=== PATIENT | male | born 1980 | race African-American/Black ===

== ENCOUNTER 2016-07-26 23:34 | Emergency (ER) | payer SELFPAY ==
[2016-07-26] MEDS ORDERED: ACET325T9 PO (23:58)
[2016-07-27] MEDS ORDERED: IPRATRPIUM/ALBUTEROL 0.5/2.5MG 3 ML NEBU. NEB ONE (00:30)
[2016-07-27] MEDS ORDERED: ALBU8.5H8 INH (00:38)
--- NOTE | 2016-07-27 00:38 | PHYS DOC ---
Past History Past Medical History: Bronchitis Past Surgical History: No Surgical History Alcohol Use: Occasionally Additional Alcohol Information: states drinks about 24 oz of beer qod Drug Use: None Adult General Chief Complaint Chief Complaint: DYSPNEA/RESPIRATOY DISTRESS HPI HPI Patient is a 36-year-old gentleman with history significant for COPD, tobacco use, alcohol usage, presents here today complaining of shortness of breath cough congestion has been going on for approximately 3-4 days. Patient reports that he is was to be utilizing albuterol treatments however reports she's not able to afford them although he reports he is able to purchase alcohol and tobacco. Patient denies any fevers shakes chills nausea vomiting diarrhea chest pain dysuria frequency urgency. Patient reports she has a whitish greenish productive cough with occasional blood-tinged sputum. Patient denies any recent weight loss. Patient's physical exam here was unremarkable. Patient's lungs were clear no wheezing rales or rhonchi. Abdomen is soft nontender no rebound or guarding. Heart was regular rate and rhythm. Patient's been sleeping throughout the entirety of his evaluation here in the ER and does not appear to be in any acute respiratory distress. Patient appears comfortable and is resting without any difficulty breathing. Patient's chest x-ray was clear there is no infiltrates or effusions. Assessment and plan: This is a 36-year-old gentleman with history significant for tobacco abuse, COPD, alcohol abuse, presents to the ER today secondary to shortness of breath. Patient reports she's had a cough congestion. Patient's symptoms are consistent with either allergic sinusitis versus chronic bronchitis. In either case I do not feel that antibiotics were warranted at this time. We will get a prescription for the patient to utilize albuterol MDI as needed but currently his lungs are clear and do not see any indication for usage of that right now. Review of Systems Review of Systems Constitutional: Denies fever or chills [] Eyes: Denies change in visual acuity, redness, or eye pain [] All other review systems are negative except as documented in the history of present illness portion. Current Medications Current Medications Current Medications Medications (Trade) Dose Ordered Sig/Mally Start Time Stop Time Status Last Admin Dose Admin Albuterol/ Ipratropium (Duoneb) 3 ml 1X ONCE 07/27/16 00:30 07/27/16 00:31 Allergies Allergies Allergies Coded Allergies Type Severity Reaction Last Updated Verified No Known Drug Allergies 07/26/16 No Physical Exam Physical Exam Constitutional: Well developed, well nourished, no acute distress, non-toxic appearance. [] HENT: Normocephalic, atraumatic, bilateral external ears normal, oropharynx moist, no oral exudates, nose normal. [] Eyes: PERRLA, EOMI, conjunctiva normal, no discharge. [] Neck: Normal range of motion, no tenderness, supple, no stridor. [] Cardiovascular:Heart rate regular rhythm, no murmur [] Lungs & Thorax: Bilateral breath sounds clear to auscultation [] Abdomen: Bowel sounds normal, soft, no tenderness, no masses, no pulsatile masses. [] Skin: Warm, dry, no erythema, no rash. [] Back: No tenderness, no CVA tenderness. [] Extremities: No tenderness, no cyanosis, no clubbing, ROM intact, no edema. [] Neurologic: Alert and oriented X 3, normal motor function, normal sensory function, no focal deficits noted. [] Psychologic: Affect normal, judgement normal, mood normal. [] Current Patient Data Vital Signs Vital Signs Date Time Temp Pulse Resp B/P (MAP) Pulse Ox O2 Delivery O2 Flow Rate FiO2 07/26/16 23:35 97.5 85 22 94 Room Air EKG EKG [] Radiology/Procedures Radiology/Procedures [] Course & Med Decision Making Course & Med Decision Making Pertinent Labs and Imaging studies reviewed. (See chart for details) [] Dragon Disclaimer Dragon Disclaimer This chart was dictated in whole or in part using Voice Recognition software in a busy, high-work load, and often noisy Emergency Department environment. It may contain unintended and wholly unrecognized errors or omissions. Departure Departure: Impression: Primary Impression: Dyspnea Additional Impression: Bronchitis Disposition: 01 HOME, SELF-CARE Condition: IMPROVED Referrals: PCP,ARELIS (PCP) Patient Instructions: Acute Bronchitis Scripts Albuterol Sulfate (PROAIR HFA INHALER) 8.5 Gm Hfa.aer.ad 2 PUFF INH PRN Q6HRS Y for SHORTNESS OF BREATH, #1 INHALER 0 Refills Prov: YOSI PHELPS MD 07/27/16 Problem Qualifiers YOSI PHELPS MD July 27, 2016 00:38
[2016-07-27 00:40] VITALS: BP 109/55
[2016-07-27] MEDS ORDERED: ALBUTEROL SULFATE 8GM INHALER. ONE (00:43)
[2016-07-27] MEDS ORDERED: ALBUTEROL SULFATE 8GM INHALER. INH ONE (00:45)
--- NOTE | 2016-07-27 08:12 | RAD ---
CHEST PA LATERAL Technique: PA and lateral views of the chest were obtained. Clinical History: Cough, short of air tonight Comparison: None. Findings: The heart and pulmonary vasculature appear within normal limits. The lungs are clear. The pleural margins are clear. Impression: No acute chest process is seen.
== END 2016-07-27 00:55 | disposition home or self-care (01) ==
LOC: ER 23:34
DX: J20.9 Acute bronchitis, unspecified (principal); J44.9 Chronic obstructive pulmonary disease, unspecified; F10.10 Alcohol abuse, uncomplicated
CPT/HCPCS: 71020; 99284-25

== ENCOUNTER 2017-08-13 06:15 | Emergency (ER) | payer SELFPAY ==
[~2017-08-13] VITALS: Ht 172.7 cm; Wt 68.0 kg
[~2017-08-13 06:15] MED LIST: ACET325T9 PO; ALBU8.5H8 INH
[2017-08-13] MEDS ORDERED: PRED50TA PO (06:43)
--- NOTE | 2017-08-13 06:43 | PHYS DOC ---
Past History Past Medical History: Bronchitis Past Surgical History: No Surgical History Alcohol Use: Occasionally Drug Use: None Adult General Chief Complaint Chief Complaint: cough HPI HPI This is a pleasant 37-year-old male presenting in the emergency department today with wheezing and a mild cough for the past 24 hours. He reports that he has a history of bronchitis and thinks that it is back. Location lungs. Duration intermittent. No alleviating or exacerbating factors. Past medical history: Bronchitis Past surgical history: None Allergies none Social history: Positive for smoking, drinking but denies IV drug use. Review of systems is negative for chest pain, nausea vomiting fevers chills headache neck pain. All other review of systems is negative unless otherwise noted in history of present illness. ED course: 37-year-old male presenting to the emergency department today with intermittent mild nonproductive cough over the past 24 hours. On arrival vital signs show the patient be afebrile with a normal heart rate. Saturating well on room air. He is comfortable and well-appearing breathing comfortably in the examination room. Lungs are clear bilaterally with mild prolonged expiratory phase. Abdomen is soft and nontender. Regular rate and rhythm. Otherwise unremarkable examination. Patient was given a nebulizer and oral prednisone to follow-up with his doctor in 2-3 days.The patient has been examined and was not found to have an emergency medical condition. The patient was then discharged home in stable condition to follow up with their primary care physician over the next 2-3 days. They were to return if their symptoms worsened or if they were concerned for any reason. [id number] discharge instructions and return precautions were given. Patient's questions were answered to their satisfaction. Patient is comfortable with plan. Review of Systems Review of Systems SEE ABOVE. Allergies Allergies Allergies Coded Allergies Type Severity Reaction Last Updated Verified No Known Drug Allergies 07/26/16 No Physical Exam Physical Exam SEE ABOVE Constitutional: Well developed, well nourished, no acute distress, non-toxic appearance. [] HENT: Normocephalic, atraumatic, bilateral external ears normal, oropharynx moist, no oral exudates, nose normal. [] Eyes: PERRLA, EOMI, conjunctiva normal, no discharge. [] Neck: Normal range of motion, no tenderness, supple, no stridor. [] Cardiovascular:Heart rate regular rhythm, no murmur [] Lungs & Thorax: Bilateral breath sounds clear to auscultation. see above Abdomen: Bowel sounds normal, soft, no tenderness, no masses, no pulsatile masses. [] Skin: Warm, dry, no erythema, no rash. [] Back: No tenderness, no CVA tenderness. [] Extremities: No tenderness, no cyanosis, no clubbing, ROM intact, no edema. [] Neurologic: Alert and oriented X 3, normal motor function, normal sensory function, no focal deficits noted. [] Psychologic: Affect normal, judgement normal, mood normal. [] EKG EKG [] Radiology/Procedures Radiology/Procedures [] Course & Med Decision Making Course & Med Decision Making Pertinent Labs and Imaging studies reviewed. (See chart for details) [] Dragon Disclaimer Dragon Disclaimer This electronic medical record was generated, in whole or in part, using a voice recognition dictation system. Departure Departure: Impression: Primary Impression: Bronchitis Disposition: HOME, SELF-CARE Condition: STABLE Referrals: PCP,NO (PCP) Patient Instructions: Acute Bronchitis, [id number] Additional Instructions: Thank you for allowing us to participate in your care today. Followup with your primary care physician in 3 days if your symptoms do not improve. Call your Primary Doctor tomorrow and inform them of your visit today. If you do not have a primary care provider you can ask for a list of our primary care providers. Return to the emergency department you have any new or concerning findings. This should be evaluated by the primary care physician and any necessary consulting services for continued management within a few days after discharge. Return to emergency room if you have any new or concerning symptoms including but not limited to fever, chills, nausea, vomiting, intractable pain, any new rashes, chest pain, shortness of air, uncontrolled bleeding, difficulty breathing, and/or vision loss. If at any time, you are having difficulty getting into your primary care doctor or a specialist, return to the emergency department. Scripts Prednisone (PREDNISONE) 50 Mg Tablet 1 TAB PO DAILY, #4 TAB You received this medication in the emergency room today. You will starting your next dose tomorrow. Prov: HEENA CASTELAN MD 08/13/17 HEENA CASTELAN MD August 13, 2017 06:43
[2017-08-13] MEDS ORDERED: IPRATRPIUM/ALBUTEROL 0.5/2.5MG 3 ML NEBU. NEB ONE (07:00)
[2017-08-13] MEDS ORDERED: predniSONE 20 MG TABLET PO ONE (07:00)
[2017-08-13 07:14] VITALS: BP 133/83
== END 2017-08-13 07:05 | disposition home or self-care (01) ==
LOC: ER 06:15
DX: J40 Bronchitis, not specified as acute or chronic (principal); F17.200 Nicotine dependence, unspecified, uncomplicated
CPT/HCPCS: 94640; 99283; J7512; J7620

== ENCOUNTER 2017-08-28 03:22 | Emergency (ER) | payer SELFPAY ==
[~2017-08-28] VITALS: Ht 172.7 cm; Wt 71.9 kg
[~2017-08-28 03:22] MED LIST changes: +PRED50TA PO
[2017-08-28 03:55] VITALS: BP 118/81
[2017-08-28] MEDS ORDERED: IPRATRPIUM/ALBUTEROL 0.5/2.5MG 3 ML NEBU. ONE (04:12)
[2017-08-28] MEDS ORDERED: PRED20TA PO (04:19)
[2017-08-28] MEDS ORDERED: ALBU18HF IH (04:19)
--- NOTE | 2017-08-28 04:25 | PHYS DOC ---
Past History Past Medical History: Bronchitis Past Surgical History: No Surgical History Alcohol Use: Occasionally Drug Use: None Adult General Chief Complaint Chief Complaint: SHORTNESS OF BREATH HPI HPI Patient is a 37 year old male who presents with complaint of shortness of breath and dizziness. Patient states that his symptoms started last night at approximately 10:00 PM. Patient states that he has history of asthma states that he is having similar symptoms. Patient states that he thinks the dust in the air may have caused the symptoms to worsen. Patient was last seen in the emergency department in May where he was treated for bronchitis at that time. Patient states the symptoms are similar to his previous episode. Patient does not have albuterol and has not taken any medications for treatment. Patient denies productive cough or fever. Patient states that he has had lightheadedness as well. The patient states that he has not had access to food and water in normal amounts. Patient is homeless. Denies any injuries. Review of Systems Review of Systems Constitutional: Lightheadedness, denies fever or chills [] Eyes: Denies change in visual acuity, redness, or eye pain [] HENT: Denies nasal congestion or sore throat [] Respiratory: Cough, shortness of breath[] Cardiovascular: Denies chest pain or edema[] GI: Denies abdominal pain, nausea, vomiting, bloody stools or diarrhea [] : Denies dysuria or hematuria [] Musculoskeletal: Denies back pain or joint pain [] Integument: Denies rash or skin lesions [] Neurologic: Denies headache, focal weakness or sensory changes [] All other systems were reviewed and found to be within normal limits, except as documented in this note. Allergies Allergies Allergies Coded Allergies Type Severity Reaction Last Updated Verified No Known Drug Allergies 07/26/16 No Physical Exam Physical Exam Constitutional: Alert, afebrile, disheveled appearance, no acute distress. [] HENT: Normocephalic, atraumatic, bilateral external ears normal, oropharynx moist, no oral exudates, nose normal. [] Eyes: PERRLA, EOMI, conjunctiva normal, no discharge. [] Neck: Normal range of motion, no tenderness, supple, no stridor. [] Cardiovascular:Heart rate regular rhythm, no murmur [] Lungs & Thorax: Mild to moderate restriction of air movement bilaterally, expiratory wheezes present, no rales.[] Abdomen: Bowel sounds normal, soft, no tenderness, no masses, no pulsatile masses. [] Skin: Warm, dry, no erythema, no rash. [] Back: No tenderness, no CVA tenderness. [] Extremities: No tenderness, no cyanosis, no clubbing, ROM intact, no edema. [] Neurologic: Alert and oriented X 3, normal motor function, normal sensory function, no focal deficits noted. [] Current Patient Data Vital Signs Vital Signs Date Time Temp Pulse Resp B/P (MAP) Pulse Ox O2 Delivery O2 Flow Rate FiO2 08/28/17 04:17 98 Room Air 08/28/17 03:55 97.6 52 18 Lab Results Not performed EKG EKG Not performed[] Radiology/Procedures Radiology/Procedures Not performed[] Course & Med Decision Making Course & Med Decision Making Pertinent Labs and Imaging studies reviewed. (See chart for details) Patient was treated with DuoNeb breathing treatment. Patient offered a snack and oral fluids. The patient declined a snack but did accept oral fluids which she was able to tolerate without difficulty. Patient's lightheadedness is likely due to dehydration. Patient states that he is feeling better after drinking water. The patient is steady on his feet and appears in no acute distress at this time. Patient prescribed albuterol and prednisone for control of asthma symptoms. Patient states that he will be going to the homeless long-term this morning to get breakfast and states that he does have a safe place to go upon discharge. Advised return to emergency department for any worsening symptoms. Patient was understanding and agreement with treatment plan. Dragon Disclaimer Dragon Disclaimer This electronic medical record was generated, in whole or in part, using a voice recognition dictation system. Departure Departure: Impression: Primary Impression: Asthma exacerbation Disposition: 01 HOME, SELF-CARE Condition: IMPROVED Referrals: PCP,NO (PCP) Patient Instructions: Asthma, Adult Additional Instructions: Follow-up with your primary doctor in 1 week for reevaluation. Be sure to drink plenty of fluids to prevent dehydration. Return to the emergency department for any worsening symptoms. Scripts Prednisone (PREDNISONE) 20 Mg Tablet 1 TAB PO BID, #10 TAB Prov: ED TORREZ MD 08/28/17 Albuterol Sulfate (VENTOLIN HFA INHALER) 18 Gm Hfa.aer.ad 2 PUFF IH Q4HRS PRN for WHEEZING, #1 INHALER 0 Refills Prov: ED TORREZ MD 08/28/17 Problem Qualifiers Primary Impression: Asthma exacerbation Asthma severity: mild Asthma persistence: persistent Qualified Codes: J45.31 - Mild persistent asthma with (acute) exacerbation ED TORREZ MD Aug 28, 2017 04:25
[2017-08-28] MEDS ORDERED: predniSONE 20 MG TABLET PO ONE (04:30)
== END 2017-08-28 05:00 | disposition home or self-care (01) ==
LOC: ER 03:22
DX: J45.901 Unspecified asthma with (acute) exacerbation (principal)
CPT/HCPCS: 94640; 99283; J7512

== ENCOUNTER 2017-09-12 03:44 | Emergency (ER) | payer SELFPAY ==
[~2017-09-12] VITALS: Ht 177.8 cm; Wt 71.8 kg
[~2017-09-12 03:44] MED LIST changes: +ALBU18HF IH; +PRED20TA PO
[2017-09-12 03:47] VITALS: BP 120/69
[2017-09-12] MEDS ORDERED: IBUPROFEN 600 MG TABLET. PO ONE ×2 (04:10→04:15)
--- NOTE | 2017-09-12 04:17 | ED.ADGEN ---
Past History Past Medical History: Bronchitis Past Surgical History: No Surgical History Alcohol Use: Occasionally Drug Use: None Adult General Chief Complaint Chief Complaint ".. I ve started working construction.. and I got a blister between my toes on the right foot..." HPI HPI Patient is a 37 year old male who presents with blister between 1stn and 2nd toe Rt. foot. Pt. states his sock balled up and blister formed. Pt. had tetanus two months ago. No hx of other injury or hx of ill contacts. No hx of travel. No hx of immunosuppression. Pt. rates his pain 10/24, and sometime . Review of Systems Review of Systems Constitutional: Denies fever or chills [] Eyes: Denies change in visual acuity, redness, or eye pain [] HENT: Denies nasal congestion or sore throat [] Respiratory: Denies cough or shortness of breath [] Cardiovascular: No additional information not addressed in HPI [] GI: Denies abdominal pain, nausea, vomiting, bloody stools or diarrhea [] : Denies dysuria or hematuria [] Musculoskeletal: Denies back pain or joint pain [] Integument: Denies rash or skin lesions []Complaints of blister. Neurologic: Denies headache, focal weakness or sensory changes [] Endocrine: Denies polyuria or polydipsia [] All other systems were reviewed and found to be within normal limits, except as documented in this note. Family History Family History Non contributory Current Medications Current Medications Current Medications Medications (Trade) Dose Ordered Sig/Mally Start Time Stop Time Status Last Admin Dose Admin Ibuprofen (Motrin) 600 mg 1X ONCE 09/12/17 04:15 09/12/17 04:16 UNV 09/12/17 04:13 600 MG See Nursing for home meds. Allergies Allergies Allergies Coded Allergies Type Severity Reaction Last Updated Verified No Known Drug Allergies 07/26/16 No Physical Exam Physical Exam Constitutional: appears in no acute distress in spite of his pain rating, non- toxic appearance. [] HENT: Normocephalic, atraumatic, bilateral external ears normal, oropharynx moist, no oral exudates, nose normal. [] Eyes: PERRLA, EOMI, conjunctiva normal, no discharge. [] Neck: Normal range of motion, no tenderness, supple, no stridor. [] Cardiovascular:Bradycardia Heart rate regular rhythm, no murmur [] Lungs & Thorax: Bilateral breath sounds clear to auscultation [] Abdomen: Bowel sounds normal, soft, no tenderness, no masses, no pulsatile masses. [] Skin: Warm, dry, no erythema, no rash. [] Bister between 1st and 2 nd toe. Back: No tenderness, no CVA tenderness. [] Extremities: No tenderness, no cyanosis, no clubbing, ROM intact, no edema. [] Neurologic: Alert and oriented X 3, normal motor function, normal sensory function, no focal deficits noted. [] Psychologic: Affect anxious, judgement normal, mood normal. [] EKG EKG [] Radiology/Procedures Radiology/Procedures [] Course & Med Decision Making Course & Med Decision Making Pertinent Labs and Imaging studies reviewed. (See chart for details). White socks only . Apply polysporin to blister 4 x days. Soak feet in salt water or episome salt daily. Follow up with primary. Tylenol and Ibuprofen for pain . [] Final Impression Final Impression 1. Blister between 1 and 2 nd toe Rt. foot - 1 x 0.5 cm.[] Dragon Disclaimer Dragon Disclaimer This electronic medical record was generated, in whole or in part, using a voice recognition dictation system. ANN-MARIE ROSE MD Sep 12, 2017 04:17
== END 2017-09-12 04:16 | disposition home or self-care (01) ==
LOC: ER 03:44
DX: S90.821A Blister (nonthermal), right foot, initial encounter (principal); X58.XXXA Exposure to other specified factors, initial encounter; Y93.89 Activity, other specified; Y99.8 Other external cause status; Y92.89 Other specified places as the place of occurrence of the external cause
CPT/HCPCS: 16020; 99283; 99284

== ENCOUNTER 2017-09-15 03:14 | Emergency (ER) | payer SELFPAY ==
[~2017-09-15] VITALS: Ht 177.8 cm; Wt 71.8 kg
--- NOTE | 2017-09-15 03:17 | ED.ADGEN ---
Past History Past Medical History: Bronchitis, Other Past Surgical History: No Surgical History Alcohol Use: None Drug Use: None Adult General Chief Complaint Chief Complaint ".. I did a couple bad lines of coke.. I snorted it... but I think it was bad... I ve had a headache since yesterday..." HPI HPI Patient is a 37 year old male who presents with above hx and complaints of headache and dizziness. Pt. seen on 09/12 for blister on toe webbing and previous to that for exacerbation of his asthma. Pt. was drinking alcohol when he did two lines of cocaine- or what was reported to be cocaine. Pt. denies other drugs. Pt. lives in [facility], but visiting in [place]. 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 Review of Systems Review of Systems Constitutional: Denies fever or chills [] Eyes: Denies change in visual acuity, redness, or eye pain [] HENT: Denies nasal congestion or sore throat [] Respiratory: Denies cough or shortness of breath [] Cardiovascular: No additional information not addressed in HPI [] GI: Denies abdominal pain, nausea, vomiting, bloody stools or diarrhea [] : Denies dysuria or hematuria [] Musculoskeletal: Denies back pain or joint pain [] Integument: Denies rash or skin lesions [] Neurologic: Denies headache, focal weakness or sensory changes [] Endocrine: Denies polyuria or polydipsia [] All other systems were reviewed and found to be within normal limits, except as documented in this note. Family History Family History Non-contributory Current Medications Current Medications Current Medications Medications (Trade) Dose Ordered Sig/Mally Start Time Stop Time Status Last Admin Dose Admin Aspirin (Children'S Aspirin) 324 mg 1X ONCE 09/15/17 03:30 09/15/17 03:31 DC 09/15/17 03:30 324 MG Folic Acid (FOLIC ACID SYRINGE for ER) 5 mg STK-MED ONCE 09/15/17 03:43 09/15/17 03:44 DC Lactated Ringer's 1,000 ml @ 1,000 mls/hr Q1H 09/15/17 03:30 09/15/17 04:29 DC 09/15/17 03:30 1,000 MLS/HR Multivitamins/ Minerals 10 ml/ Folic Acid 1 mg/ Thiamine HCl 100 mg/Lactated Ringer's 1,011.1 ml @ 1,000 mls/ hr 1X ONCE 09/15/17 03:30 09/15/17 04:30 DC 09/15/17 03:30 1,000 MLS/HR Thiamine HCl 200 mg STK-MED ONCE 09/15/17 03:44 09/15/17 03:45 DC Allergies Allergies Allergies Coded Allergies Type Severity Reaction Last Updated Verified No Known Drug Allergies 07/26/16 No Physical Exam Physical Exam Constitutional: Moderately acute distress, non-toxic appearance. [] HENT: Normocephalic, atraumatic, bilateral external ears normal, oropharynx moist, no oral exudates, nose rhinorrhea[] Eyes: PERRLA, EOMI, conjunctiva normal, no discharge. [] Neck: Normal range of motion, no tenderness, supple, no stridor. [] Cardiovascular:Bradycardia Heart rate regular rhythm, no murmur [] Lungs & Thorax: Bilateral breath sounds equal with few scattered wheezes on auscultation [] Abdomen: Bowel sounds normal, soft, no tenderness, no masses, no pulsatile masses. [] Skin: Warm, dry, no erythema, no rash. [] Back: No tenderness, no CVA tenderness. [] Extremities: No tenderness, no cyanosis, no clubbing, ROM intact, no edema. [] Neurologic: Alert and oriented X 3, normal motor function, normal sensory function, no focal deficits noted. []DTR+ 2 patella and brachial. Mail Messenger Contractor equal. Slight wide gait. Psychologic: Affect anxious, judgement normal, mood normal. [] Current Patient Data Vital Signs Vital Signs Date Time Temp Pulse Resp B/P (MAP) Pulse Ox O2 Delivery O2 Flow Rate FiO2 09/15/17 04:21 52 16 100 09/15/17 03:25 97.9 Room Air Lab Results Laboratory Tests Test 09/15/17 03:34 09/15/17 03:35 White Blood Count 4.3 x10^3/uL (4.0-11.0) Red Blood Count 4.58 x10^6/uL (4.30-5.70) Hemoglobin 13.9 g/dL (13.0-17.5) Hematocrit 40.9 % (39.0-53.0) Mean Corpuscular Volume 89 fL (79-100) Mean Corpuscular Hemoglobin 30 pg (25-35) Mean Corpuscular Hemoglobin Concent 34 g/dL (31-37) Red Cell Distribution Width 15.3 % (11.5-14.5) H Platelet Count 237 x10^3/uL (140-400) Neutrophils (%) (Auto) 47 % (31-73) Lymphocytes (%) (Auto) 36 % (24-48) Monocytes (%) (Auto) 10 % (0-9) H Eosinophils (%) (Auto) 6 % (0-3) H Basophils (%) (Auto) 1 % (0-3) Neutrophils # (Auto) 2.0 x10^3uL (1.8-7.7) Lymphocytes # (Auto) 1.5 x10^3/uL (1.0-4.8) Monocytes # (Auto) 0.4 x10^3/uL (0.0-1.1) Eosinophils # (Auto) 0.3 x10^3/uL (0.0-0.7) Basophils # (Auto) 0.1 x10^3/uL (0.0-0.2) Prothrombin Time 10.7 SEC (9.4-11.4) Prothrombin Time INR 1.0 (0.9-1.1) PTT 29 SEC (23-33) D-Dimer (Sophia) 0.23 mg/L (0.00-0.50) Sodium Level 138 mmol/L (136-145) Potassium Level 3.7 mmol/L (3.5-5.1) Chloride Level 104 mmol/L (98-107) Carbon Dioxide Level 32 mmol/L (21-32) Anion Gap 2 (6-14) L Blood Urea Nitrogen 10 mg/dL (8-26) Creatinine 0.9 mg/dL (0.7-1.3) Estimated GFR (Cockcroft-Gault) 114.9 Glucose Level 84 mg/dL (70-99) Calcium Level 8.9 mg/dL (8.5-10.1) Magnesium Level 2.0 mg/dL (1.8-2.4) Total Bilirubin 0.5 mg/dL (0.2-1.0) Direct Bilirubin 0.1 mg/dL (0.0-0.2) Aspartate Amino Transferase (AST) 21 U/L (15-37) Alanine Aminotransferase (ALT) 19 U/L (16-63) Alkaline Phosphatase 72 U/L (46-116) Creatine Kinase 406 U/L (39-308) H Creatine Kinase MB (Mass) 1.3 ng/mL (0.0-3.6) Creatine Kinase MB Relative Index 0.3 % (0-4) Troponin I Quantitative < 0.017 ng/mL (0-0.055) [id number]-Xeu-I-Type Natriuretic Peptide 18 pg/mL (0-124) Total Protein 6.8 g/dL (6.4-8.2) Albumin 3.7 g/dL (3.4-5.0) Lipase 102 U/L (73-393) Ethyl Alcohol Level < 10 mg/dL (0-10) Urine Collection Type Unknown Urine Color Yellow Urine Clarity Clear Urine pH 6.0 Urine Specific [place] 1.010 Urine Protein Neg (NEG-TRACE) Urine Glucose (UA) Neg mg/dL (NEG) Urine Ketones (Stick) Neg mg/dL (NEG) Urine Blood Neg (NEG) Urine Nitrite Neg (NEG) Urine Bilirubin Neg (NEG) Urine Urobilinogen Dipstick 0.2 mg/dL (0.2 mg/dL) Urine Leukocyte Esterase Neg (NEG) Urine RBC 0 /HPF (0-2) Urine WBC Occ /HPF (0-4) Urine Squamous Epithelial Cells Occ /LPF Urine Bacteria 0 /HPF (0-FEW) Urine Opiates Screen Neg (NEG) Urine Methadone Screen Neg (NEG) Urine Barbiturates Neg (NEG) Urine Phencyclidine Screen Neg (NEG) Urine Amphetamine/Methamphetamine Neg (NEG) Urine Benzodiazepines Screen Neg (NEG) Urine Cocaine Screen Pos (NEG) Urine Cannabinoids Screen Pos (NEG) Urine Ethyl Alcohol Neg (NEG) EKG EKG My interpretation of EKG shows a sinus bradycardia at 52 bpm. Some nonspecific anterior lateral changes. But no findings acute STEMI of contralateral changes.[ ] Radiology/Procedures Radiology/Procedures My interpretation of chest x-ray shows no acute cardiopulmonary findings. My interpretation CT head shows no shift, mass, edema, bleed, or fracture. Review formal report when available.[] Course & Med Decision Making Course & Med Decision Making Pertinent Labs and Imaging studies reviewed. (See chart for details). Pt. to stop further illicit drug use. Pt. encourage to follow up with primary. Push fruit juices. [] Final Impression Final Impression 1. Hx of Polysubstance Abuse[] 2. Bradycardia Dragon Disclaimer Dragon Disclaimer This electronic medical record was generated, in whole or in part, using a voice recognition dictation system. ANN-MARIE ROSE MD Sep 15, 2017 03:17
[2017-09-15 03:25] VITALS: BP 150/86
[2017-09-15] MEDS ORDERED: IV RINGERS SOLUTION,LACTATED 1,000 ML IV SCH (03:30)
[2017-09-15] MEDS ORDERED: ASPIRIN 81 MG TAB.CHEW PO ONE (03:30)
[2017-09-15] MEDS ORDERED: MVI, ADULT NO.4 WITH VIT K 10 ML, FOLIC ACID SYRINGE for ER 1 MG, THIAMINE 100 MG in IV... IV ONE ×4 (03:30)
[2017-09-15] MEDS ORDERED: FOLIC ACID 5 MG/ML SYRINGE for ER IV ONE (03:43)
[2017-09-15] MEDS ORDERED: THIAMINE 200 MG/2 ML VIAL. IV ONE (03:44)
--- NOTE | 2017-09-15 03:46 | EKG ---
[address] [address] Test Date: 2017-09-15 Test Time: 03:41:24 Pat Name: NICK ELLSWORTH Department: Room: Gender: M Field Reporter: KERLINE : 1980 Requested By: ANN-MARIE ROSE Order Number: [id number] Reading MD: Doyle Childress MD Measurements Intervals [place] Rate: 52 P: 0 CT: 170 QRS: 68 QRSD: 86 T: 36 QT: 386 QTc: 361 Interpretive Statements SINUS RHYTHM NON-SPECIFIC ST/T CHANGES Electronically Signed On 09-15-2017 13:33:59 CDT by Doyle Childress MD
[2017-09-15 03:50] LABS: BASO # 0.1 x10^3/uL (0.0-0.2); BASO % 1 % (0-3); EOS # 0.3 x10^3/uL (0.0-0.7); EOS % 6 % (0-3); HEMATOCRIT 40.9 % (39.0-53.0); HEMOGLOBIN 13.9 g/dL (13.0-17.5); LYMPH # 1.5 x10^3/uL (1.0-4.8); LYMPH % 36 % (24-48); MEAN CORPUSCULAR HEMOGLOBIN 30 pg (25-35); MEAN CORPUSCULAR HGB CONC 34 g/dL (31-37); MEAN CORPUSCULAR VOLUME 89 fL (79-100); MONO # 0.4 x10^3/uL (0.0-1.1); MONO % 10 % (0-9); NEUT % 47 % (31-73); PLATELET COUNT 237 x10^3/uL (140-400); RED BLOOD COUNT 4.58 x10^6/uL (4.30-5.70); RED CELL DISTRIBUTION WIDTH 15.3 % (11.5-14.5); WHITE BLOOD COUNT 4.3 x10^3/uL (4.0-11.0)
--- NOTE | 2017-09-15 03:59 | RAD ---
INDICATION: [id number] Headache, dizziness COMPARISON: None. TECHNIQUE: Axial CT images obtained through the head without intravenous contrast. One or more of the following individualized dose reduction techniques were utilized for this examination: 1. Automated exposure control; 2. Adjustment of the mA and/or kV according to patient size; 3. Use of iterative reconstruction technique. FINDINGS: No intracranial hemorrhage. No midline shift. Basal cisterns patent. Ventricles and sulci are unremarkable. Angulation of right zygomatic arch Orbits and paranasal sinuses unremarkable. IMPRESSION: 1. No acute intracranial hemorrhage. 2. Angulation of right zygomatic arch. Could be congenital or secondary to fracture of unknown age. Electronically signed by: Lc Cobb MD (09/15/2017 3:56 AM) [facility]
[2017-09-15 04:05] LABS: BACTERIA,URINE 0 /HPF (0-FEW); BILIRUBIN,URINE NEG (NEG); CLARITY,URINE CLEAR; COLOR,URINE YELLOW; GLUCOSE,URINE NEG (NEG); NITRITE,URINE NEG (NEG); RBC,URINE 0 /HPF (0-2); SQUAMOUS EPITHELIAL CELL,UR OCC /LPF; UROBILINOGEN,URINE 0.2 mg/dL (0.2 mg/dL); WBC,URINE OCC /HPF (0-4)
[2017-09-15 04:16] LABS: BARBITURATES NEG (NEG); BENZODIAZEPINES NEG (NEG); CANNABINOIDS POS (NEG); COCAINE POS (NEG); METHADONE NEG (NEG); OPIATES NEG (NEG); PHENCYCLIDINE NEG (NEG)
[2017-09-15 04:17] LABS: AMPHETAMINE/METHAMPHETAMINE NEG (NEG)
[2017-09-15 04:19] LABS: ALBUMIN 3.7 g/dL (3.4-5.0); CALCIUM 8.9 mg/dL (8.5-10.1); CREATININE 0.9 mg/dL (0.7-1.3); DIRECT BILIRUBIN 0.1 mg/dL (0.0-0.2); GFR 114.9; POTASSIUM 3.7 mmol/L (3.5-5.1); TOTAL BILIRUBIN 0.5 mg/dL (0.2-1.0); TOTAL PROTEIN 6.8 g/dL (6.4-8.2)
--- NOTE | 2017-09-15 07:46 | RAD ---
Chest radiograph 09/15/2017 3:18 AM INDICATION: Headache, dizziness COMPARISON: Chest radiograph July 27, 2016 TECHNIQUE: Frontal view of the chest is provided. FINDINGS: The cardiomediastinal silhouette is within normal limits. There are no pleural effusions. There is no pulmonary vascular congestion. There is no pneumothorax. The lungs are clear. No significant osseous abnormality is identified. IMPRESSION: No acute cardiopulmonary process. Electronically signed by: Massiel Umanzor MD (09/15/2017 7:43 AM) [facility]
== END 2017-09-15 04:57 | disposition home or self-care (01) ==
LOC: ER 03:14
DX: R00.1 Bradycardia, unspecified (principal); F19.10 Other psychoactive substance abuse, uncomplicated
CPT/HCPCS: 36415; 70450; 71045; 80048; 80076; 80307; 81001; 82553; 83690; 83735; 83880; 84443; 84484; 85025; 85379; 85610; 85730; 93005; 96365; 99285; G0480; J7120; G0479

== ENCOUNTER 2017-09-22 23:18 | Emergency (ER) | payer SELFPAY ==
[~2017-09-22] VITALS: Ht 177.8 cm; Wt 71.8 kg
--- NOTE | 2017-09-22 23:23 | ED.ADGEN ---
Past History Past Medical History: Bronchitis, Other Past Surgical History: No Surgical History Smoking: Cigarettes Alcohol Use: Heavy Drug Use: Cocaine, Marijuana Adult General Chief Complaint Chief Complaint ".. I ve been dizzy since 11:00.. I was over at my friends... and was drinking a couple beers.. when I got up ... I was dizzy..." HPI HPI Patient is a 37 year old male who presents with above hx and complaints dizzy after working outside all day and then drinking beer tonight. Pt. denies any trauma, chest pain, ill contracts or travel. Pt. does smoke. Pt. had min. fluid in today. Pt. seen previously for bronchitis and prior eval. for similar complaints. Pt. is ambulatory with out problems. Review of Systems Review of Systems Constitutional: Denies fever or chills [] Eyes: Denies change in visual acuity, redness, or eye pain [] HENT: Denies nasal congestion or sore throat [] Respiratory: Denies cough or shortness of breath [] Cardiovascular: No additional information not addressed in HPI []Complaints of dizzy. GI: Denies abdominal pain, nausea, vomiting, bloody stools or diarrhea [] : Denies dysuria or hematuria [] Musculoskeletal: Denies back pain or joint pain [] Integument: Denies rash or skin lesions [] Neurologic: Denies headache, focal weakness or sensory changes [] Endocrine: Denies polyuria or polydipsia [] All other systems were reviewed and found to be within normal limits, except as documented in this note. Family History Family History Non-contributory Current Medications Current Medications See Nursing for home meds. Allergies Allergies Allergies Coded Allergies Type Severity Reaction Last Updated Verified No Known Drug Allergies 07/26/16 No Physical Exam Physical Exam Constitutional: , no acute distress, non-toxic appearance. [] HENT: Normocephalic, atraumatic, bilateral external ears normal, oropharynx moist, no oral exudates, nose normal. [] Eyes: PERRLA, EOMI, conjunctiva normal, no discharge. [] Neck: Normal range of motion, no tenderness, supple, no stridor. [] Cardiovascular:Bradycardia Heart rate regular rhythm, no murmur [] Lungs & Thorax: Bilateral breath sounds scattered wheezes and equal at apex on auscultation [] Abdomen: Bowel sounds normal, soft, no tenderness, no masses, no pulsatile masses. [] Skin: Warm, dry, no erythema, no rash. [] Back: No tenderness, no CVA tenderness. [] Extremities: No tenderness, no cyanosis, no clubbing, ROM intact, no edema. [] Neurologic: Alert and oriented X 3, normal motor function, normal sensory function, no focal deficits noted. []DTR + 2 patella and brachial. Information Resources Manager equal. Rt hand dominate. Psychologic: Affect distracted, judgement normal, mood normal. [] Current Patient Data Vital Signs Vital Signs Date Time Temp Pulse Resp B/P (MAP) Pulse Ox O2 Delivery O2 Flow Rate FiO2 09/23/17 01:08 68 18 118/64 (82) 98 Room Air 09/22/17 23:31 98.2 Lab Results Laboratory Tests Test 09/23/17 00:15 Urine Collection Type Unknown Urine Color Yellow Urine Clarity Clear Urine pH 6.0 Urine Specific [place] 1.025 Urine Protein Neg (NEG-TRACE) Urine Glucose (UA) Neg mg/dL (NEG) Urine Ketones (Stick) Trace mg/dL (NEG) Urine Blood Neg (NEG) Urine Nitrite Neg (NEG) Urine Bilirubin Neg (NEG) Urine Urobilinogen Dipstick 0.2 mg/dL (0.2 mg/dL) Urine Leukocyte Esterase Neg (NEG) Urine RBC 0 /HPF (0-2) Urine WBC Occ /HPF (0-4) Urine Squamous Epithelial Cells Occ /LPF Urine Bacteria 0 /HPF (0-FEW) Urine Opiates Screen Neg (NEG) Urine Methadone Screen Neg (NEG) Urine Barbiturates Neg (NEG) Urine Phencyclidine Screen Neg (NEG) Urine Amphetamine/Methamphetamine Neg (NEG) Urine Benzodiazepines Screen Neg (NEG) Urine Cocaine Screen Neg (NEG) Urine Cannabinoids Screen Pos (NEG) Urine Ethyl Alcohol Neg (NEG) EKG EKG Patient EKG shows sinus rhythm at 62 bpm. No acute morphology.[] Radiology/Procedures Radiology/Procedures Reviewed CXR of 09/15[] Course & Med Decision Making Course & Med Decision Making Pertinent Labs and Imaging studies reviewed. (See chart for details). Push fluids. Take tylenol and ibuprofen over the counter for discomfort. Stop tobacco, marijuana and illicit drug use. Follow up with primary. [] Final Impression Final Impression 1. Dizzy 2. Hx of Bronchitis 3. Hx. of Polysubstance abuse- + Cocaine on 09/15 4. Tobacco and Marijuana use 5. Mild Dehydration Dragon Disclaimer Dragon Disclaimer This electronic medical record was generated, in whole or in part, using a voice recognition dictation system. ANN-MARIE ROSE MD Sep 22, 2017 23:23
--- NOTE | 2017-09-22 23:43 | EKG ---
[address] [address] Test Date: 2017-09-22 Test Time: 23:35:32 Pat Name: NICK ELLSWORTH Department: Room: Gender: M Business Asst: DORA : 1980 Requested By: ANN-MARIE ROSE Order Number: [id number] Reading MD: Doyle Childress MD Measurements Intervals [place] Rate: 58 P: 21 NE: 178 QRS: 62 QRSD: 82 T: 36 QT: 376 QTc: 372 Interpretive Statements SINUS RHYTHM Electronically Signed On 09-23-2017 11:14:39 CDT by Doyle Childress MD
[2017-09-23 00:34] LABS: BARBITURATES NEG (NEG); BENZODIAZEPINES NEG (NEG); CANNABINOIDS POS (NEG); COCAINE NEG (NEG); METHADONE NEG (NEG); OPIATES NEG (NEG); PHENCYCLIDINE NEG (NEG)
[2017-09-23 00:37] LABS: BACTERIA,URINE 0 /HPF (0-FEW); BILIRUBIN,URINE NEG (NEG); CLARITY,URINE CLEAR; COLOR,URINE YELLOW; GLUCOSE,URINE NEG (NEG); NITRITE,URINE NEG (NEG); RBC,URINE 0 /HPF (0-2); SQUAMOUS EPITHELIAL CELL,UR OCC /LPF; UROBILINOGEN,URINE 0.2 mg/dL (0.2 mg/dL); WBC,URINE OCC /HPF (0-4)
[2017-09-23 00:39] LABS: AMPHETAMINE/METHAMPHETAMINE NEG (NEG)
[2017-09-23 01:08] VITALS: BP 118/64
== END 2017-09-23 01:11 | disposition home or self-care (01) ==
LOC: ER 23:18
DX: E86.0 Dehydration (principal); R42 Dizziness and giddiness; F17.210 Nicotine dependence, cigarettes, uncomplicated; F10.20 Alcohol dependence, uncomplicated; F14.10 Cocaine abuse, uncomplicated; F12.10 Cannabis abuse, uncomplicated
CPT/HCPCS: 36415; 80307; 81001; 93005; 99285; G0479

== ENCOUNTER 2017-09-30 05:00 | Emergency (ER) | payer SELFPAY ==
[~2017-09-30] VITALS: Ht 177.8 cm; Wt 71.8 kg
[2017-09-30 05:02] VITALS: BP 118/64
--- NOTE | 2017-09-30 07:15 | ED.ADGEN ---
Past History Past Medical History: Bronchitis Past Surgical History: No Surgical History Smoking: Cigarettes Alcohol Use: Occasionally Drug Use: Cocaine, Marijuana Adult General Chief Complaint Chief Complaint blisters bottom of R foot HPI HPI Patient is a 37 year old AA male presents with post-hysterectomy foot area patient's homeless. No other symptoms or complaints been spell. Review of Systems Review of Systems Constitutional: Denies fever or chills [] Eyes: Denies change in visual acuity, redness, or eye pain [] HENT: Denies nasal congestion or sore throat [] Respiratory: Denies cough or shortness of breath [] Cardiovascular: No additional information not addressed in HPI [] GI: Denies abdominal pain, nausea, vomiting, bloody stools or diarrhea [] : Denies dysuria or hematuria [] Musculoskeletal: Denies back pain or joint pain [] Integument: Denies rash or skin lesions [] Neurologic: Denies headache, focal weakness or sensory changes [] Endocrine: Denies polyuria or polydipsia [] All other systems were reviewed and found to be within normal limits, except as documented in this note. Allergies Allergies Allergies Coded Allergies Type Severity Reaction Last Updated Verified No Known Drug Allergies 07/26/16 No Physical Exam Physical Exam Constitutional: Well developed, well nourished, no acute distress, non-toxic appearance. [] Extremities: No tenderness, deroofed blister and first interphalangeal webspace , no abscess or purulent drainage are appreciated cellulitis. [] Neurologic: Alert and oriented X 3, normal motor function, normal sensory function, no focal deficits noted. [] Psychologic: Affect normal, judgement normal, mood normal. [] EKG EKG [] Radiology/Procedures Radiology/Procedures [] Course & Med Decision Making Course & Med Decision Making Pertinent Labs and Imaging studies reviewed. (See chart for details) [Supportive care recommended] Final Impression Final Impression [1. blister R foot] Dragon Disclaimer Dragon Disclaimer This electronic medical record was generated, in whole or in part, using a voice recognition dictation system. DARREL ESTRADA DO Sep 30, 2017 07:15
== END 2017-09-30 05:51 | disposition home or self-care (01) ==
LOC: ER 05:00
DX: S90.821A Blister (nonthermal), right foot, initial encounter (principal); F17.210 Nicotine dependence, cigarettes, uncomplicated; Z59.0 Homelessness; X58.XXXA Exposure to other specified factors, initial encounter; Y93.89 Activity, other specified; Y99.8 Other external cause status; Y92.89 Other specified places as the place of occurrence of the external cause
CPT/HCPCS: 99281

== ENCOUNTER 2017-10-23 00:46 | Emergency (ER) | payer SELFPAY ==
[~2017-10-23] VITALS: Ht 177.8 cm; Wt 71.8 kg
--- NOTE | 2017-10-23 00:57 | ED.ADGEN ---
Past History Past Medical History: No Pertinent History, Bronchitis Past Surgical History: No Surgical History Smoking: Cigarettes Alcohol Use: Occasionally Drug Use: Cocaine, Marijuana Adult General Chief Complaint Chief Complaint " I got some glass in my hand.... I think.. I was working with broken glass... I got this spot.. on my Rt. palm... it just keeps having a sticking feeling...". " HPI HPI Patient is a 37 year old male who presents with hx puncture wound Rt. palm. Pt. states injury happened 2 days ago. Pt. states he tried to scrape it out. Pt. states tetanus up to date with tetanus as of 8 months ago. Pt. denies any immunosuppression. No travel. No specific ill contacts. Normally healthy. Distal neurovascular intact. Has a very small puncture wound. Review of Systems Review of Systems Constitutional: Denies fever or chills [] Eyes: Denies change in visual acuity, redness, or eye pain [] HENT: Denies nasal congestion or sore throat [] Respiratory: Denies cough or shortness of breath [] Cardiovascular: No additional information not addressed in HPI [] GI: Denies abdominal pain, nausea, vomiting, bloody stools or diarrhea [] : Denies dysuria or hematuria [] Musculoskeletal: Denies back pain or joint pain []complaints of foreign body in right hand Integument: Denies rash or skin lesions [] Neurologic: Denies headache, focal weakness or sensory changes [] Endocrine: Denies polyuria or polydipsia [] All other systems were reviewed and found to be within normal limits, except as documented in this note. Family History Family History Noncontributory Current Medications Current Medications See nursing for home meds Allergies Allergies Allergies Coded Allergies Type Severity Reaction Last Updated Verified No Known Drug Allergies 07/26/16 No Physical Exam Physical Exam Constitutional: Well developed, well nourished, no acute distress, non-toxic appearance. [] HENT: Normocephalic, atraumatic, bilateral external ears normal, oropharynx moist, no oral exudates, nose normal. [] Eyes: PERRLA, EOMI, conjunctiva normal, no discharge. [] Neck: Normal range of motion, no tenderness, supple, no stridor. [] Cardiovascular:Heart rate regular rhythm, no murmur [] Lungs & Thorax: Bilateral breath sounds equal at apex with few scattered wheezes auscultation [] Abdomen: Bowel sounds normal, soft, no tenderness, no masses, no pulsatile masses. [] Skin: Warm, dry, no erythema, no rash. [] Back: No tenderness, no CVA tenderness. [] Extremities: No tenderness, no cyanosis, no clubbing, ROM intact, no edema. [] Except findings in right palm-very small puncture wound Neurologic: Alert and oriented X 3, normal motor function, normal sensory function, no focal deficits noted. [] Psychologic: Affect normal, judgement normal, mood normal. [] Current Patient Data Vital Signs Vital Signs Date Time Temp Pulse Resp B/P (MAP) Pulse Ox O2 Delivery O2 Flow Rate FiO2 10/23/17 02:15 76 18 122/88 (99) 98 Room Air 10/23/17 01:00 98.1 EKG EKG [] Radiology/Procedures Radiology/Procedures My interpretation of x-ray shows no obvious glass or other obvious foreign body] Course & Med Decision Making Course & Med Decision Making Pertinent Labs and Imaging studies reviewed. (See chart for details) Hand was cleaned with Betadine. Scraped area of puncture wound with a 10 blade. Patient reports resolution of the "sticking sensation", a small splinter removed. A shaky. Clean and dry. Polysporin 4 times a day. Patient encouraged to wear gloves while working. Recent follow-up primary care. Patient return if any concerns. [] Final Impression Final Impression 1. Foreign Body Sensation Rt. Palm[] Dragon Disclaimer Dragon Disclaimer This electronic medical record was generated, in whole or in part, using a voice recognition dictation system. ANN-MARIE ROSE MD Oct 23, 2017 00:57
[2017-10-23 02:15] VITALS: BP 122/88
--- NOTE | 2017-10-23 08:00 | RAD ---
Right hand, 3 views, 10/23/2017: HISTORY: Possible foreign body, hand injury with broken glass The area of clinical concern along the volar aspect of the hand was marked on the skin surface with a BB. No underlying radiopaque foreign body is evident. No fracture or bony abnormality is detected. IMPRESSION: No significant abnormality is identified. Electronically signed by: Demetris Page MD (10/23/2017 7:56 AM) [facility]
== END 2017-10-23 02:08 | disposition home or self-care (01) ==
LOC: ER 00:46
DX: S61.441A Puncture wound with foreign body of right hand, initial encounter (principal); F17.210 Nicotine dependence, cigarettes, uncomplicated; W25.XXXA Contact with sharp glass, initial encounter; Y93.89 Activity, other specified; Y92.89 Other specified places as the place of occurrence of the external cause; Y99.8 Other external cause status
CPT/HCPCS: 10120; 73130; 99284

== ENCOUNTER 2017-11-01 05:43 | Emergency (ER) | payer SELFPAY ==
[~2017-11-01] VITALS: Ht 177.8 cm; Wt 71.8 kg
[2017-11-01 05:45] VITALS: BP 115/77
--- NOTE | 2017-11-01 07:15 | PHYS DOC ---
Past History Past Medical History: Bronchitis Past Surgical History: No Surgical History Smoking: Cigarettes Alcohol Use: Occasionally Drug Use: Cocaine, Marijuana Adult General Chief Complaint Chief Complaint: COUGH [facility] HPI Patient is a 37 year old male who presents with complains of cough and intermittent dizziness. Patient states he's had a cough for the past 1-2 days which is similar to rhonchi this please had in the past and occasionally gets dizzy. Patient states currently is not dizzy and has no other acute complaints. Patient is homeless and is known to staff. Review of Systems Review of Systems Constitutional: Denies fever or chills [] Eyes: Denies change in visual acuity, redness, or eye pain [] HENT: Denies nasal congestion or sore throat [] Respiratory: Denies cough or shortness of breath [] Cardiovascular: No additional information not addressed in HPI [] GI: Denies abdominal pain, nausea, vomiting, bloody stools or diarrhea [] : Denies dysuria or hematuria [] Musculoskeletal: Denies back pain or joint pain [] Integument: Denies rash or skin lesions [] Neurologic: Denies headache, focal weakness or sensory changes [] Endocrine: Denies polyuria or polydipsia [] All other systems were reviewed and found to be within normal limits, except as documented in this note. Allergies Allergies Allergies Coded Allergies Type Severity Reaction Last Updated Verified No Known Drug Allergies 07/26/16 No Physical Exam Physical Exam Constitutional: Well developed, well nourished, no acute distress, non-toxic appearance. [] HENT: Normocephalic, atraumatic, bilateral external ears normal, oropharynx moist, no oral exudates, nose normal. [] Eyes: PERRLA, EOMI, conjunctiva normal, no discharge. [] Neck: Normal range of motion, no tenderness, supple, no stridor. [] Cardiovascular:Heart rate regular rhythm, no murmur [] Lungs & Thorax: Bilateral breath sounds clear to auscultation [] Abdomen: Bowel sounds normal, soft, no tenderness, no masses, no pulsatile masses. [] Skin: Warm, dry, no erythema, no rash. [] Back: No tenderness, no CVA tenderness. [] Extremities: No tenderness, no cyanosis, no clubbing, ROM intact, no edema. [] Neurologic: Alert and oriented X 3, normal motor function, normal sensory function, no focal deficits noted. [] Psychologic: Affect normal, judgement normal, mood normal. [] Current Patient Data Vital Signs Vital Signs Date Time Temp Pulse Resp B/P (MAP) Pulse Ox O2 Delivery O2 Flow Rate FiO2 11/01/17 05:45 97.7 65 16 99 Room Air EKG EKG [] Radiology/Procedures Radiology/Procedures PA lateral chest x-ray was no acute disease, interpreted by ED physician[] Course & Med Decision Making Course & Med Decision Making Pertinent Labs and Imaging studies reviewed. (See chart for details) [] Dragon Disclaimer Dragon Disclaimer This electronic medical record was generated, in whole or in part, using a voice recognition dictation system. Departure Departure: Impression: Primary Impression: Cough Additional Impression: Bronchitis Disposition: 01 HOME, SELF-CARE Condition: STABLE Referrals: PCP,NO (PCP) Problem Qualifiers MIAH CHRISTINA MD Nov 01, 2017 07:15
--- NOTE | 2017-11-01 08:05 | RAD ---
PROCEDURE: CHEST PA LATERAL CLINICAL INDICATION: cough x 2 days, pt shielded COMPARISON: 09/15/2017 FINDINGS: No pneumothorax identified. Cardiac and mediastinal contours unremarkable. No pulmonary consolidation or acute airspace disease. No acute osseous abnormalities identified. IMPRESSION: No pulmonary consolidation or acute airspace disease. Electronically signed by: Luciano Castro DO (11/01/2017 8:01 AM) [facility]
== END 2017-11-01 07:22 | disposition home or self-care (01) ==
LOC: ER 05:43
DX: J40 Bronchitis, not specified as acute or chronic (principal); R42 Dizziness and giddiness; F17.210 Nicotine dependence, cigarettes, uncomplicated
CPT/HCPCS: 71046; 99284

== ENCOUNTER 2017-11-03 00:07 | Emergency (ER) | payer SELFPAY ==
[~2017-11-03] VITALS: Ht 177.8 cm; Wt 71.8 kg
[2017-11-03 00:08] VITALS: BP 126/78
--- NOTE | 2017-11-03 00:56 | PHYS DOC ---
Past History Past Medical History: Bronchitis Past Surgical History: No Surgical History Smoking: Cigarettes Alcohol Use: Occasionally Drug Use: Cocaine, Marijuana Adult General Chief Complaint Chief Complaint: OTHER COMPLAINTS [facility] HPI 37-year-old male presents with bilateral foot pain. The patient is homeless. He has been outside walking around in the rain all day. His shoes and socks are completely soaked. After walking around most the day, his feet began to have a burning sensation. When he took his shoes off, his feet were "bright white and waterlogged". He found this concerning so he came to the emergency room. Patient denies fever or chills. He was able to keep the rest of his body dry except for the lower part of his pants and his feet. He has no other complaints. Review of Systems Review of Systems Constitutional: Denies fever or chills [] Eyes: Denies change in visual acuity, redness, or eye pain [] HENT: Denies nasal congestion or sore throat [] Respiratory: Denies cough or shortness of breath [] Cardiovascular: No additional information not addressed in HPI [] GI: Denies abdominal pain, nausea, vomiting, bloody stools or diarrhea [] : Denies dysuria or hematuria [] Musculoskeletal: Denies back pain or joint pain [] Integument: Wet feet[] Neurologic: Denies headache, focal weakness or sensory changes [] Endocrine: Denies polyuria or polydipsia [] All other systems were reviewed and found to be within normal limits, except as documented in this note. Allergies Allergies Allergies Coded Allergies Type Severity Reaction Last Updated Verified No Known Drug Allergies 07/26/16 No Physical Exam Physical Exam Constitutional: Well developed, well nourished, no acute distress, non-toxic appearance. [] HENT: Normocephalic, atraumatic, bilateral external ears normal, oropharynx moist, no oral exudates, nose normal. [] Eyes: PERRLA, EOMI, conjunctiva normal, no discharge. [] Neck: Normal range of motion, no tenderness, supple, no stridor. [] Cardiovascular:Heart rate regular rhythm, no murmur [] Lungs & Thorax: Bilateral breath sounds clear to auscultation [] Abdomen: Bowel sounds normal, soft, no tenderness, no masses, no pulsatile masses. [] Skin: The skin on the bottom of the patient's feet is calloused and thickened. The skin is a pale white color consistent with prolonged exposure to water. No open sores or signs of infection. Onychomycosis of multiple toenails.[] Back: No tenderness, no CVA tenderness. [] Extremities: No tenderness, no cyanosis, no clubbing, ROM intact, no edema. [] Neurologic: Alert and oriented X 3, normal motor function, normal sensory function, no focal deficits noted. [] Psychologic: Affect normal, judgement normal, mood normal. [] EKG EKG [] Radiology/Procedures Radiology/Procedures [] Course & Med Decision Making Course & Med Decision Making Pertinent Labs and Imaging studies reviewed. (See chart for details) We were able to provide some new socks for the patient. Given the condition of his feet, the patient really needed a place to stay for the night so that his skin could fully dry and his clothes could be dried. We contacted the local homeless care home and they did have a bed available. We will see the patient there by taxi. He has agreed to go. He is stable for discharge at this time. [] Dragon Disclaimer Dragon Disclaimer This electronic medical record was generated, in whole or in part, using a voice recognition dictation system. Departure Departure: Referrals: PCP,NO (PCP) DARREL LEMUS DO Nov 03, 2017 00:56
== END 2017-11-03 01:12 | disposition home or self-care (01) ==
LOC: ER 00:07
DX: B35.1 Tinea unguium (principal); M79.672 Pain in left foot; M79.671 Pain in right foot; F17.210 Nicotine dependence, cigarettes, uncomplicated; Z59.0 Homelessness
CPT/HCPCS: 99281

== ENCOUNTER 2017-11-11 17:27 | Emergency (ER) | payer SELFPAY ==
[~2017-11-11] VITALS: Ht 177.8 cm; Wt 68.0 kg
--- NOTE | 2017-11-11 17:47 | PHYS DOC ---
Past History Past Medical History: Bronchitis Past Surgical History: No Surgical History Smoking: Cigarettes Alcohol Use: Heavy Drug Use: None Adult General Chief Complaint Chief Complaint: DIZZY/LIGHT HEADED [facility] HPI Patient is a 37 year old homeless male who was in by EMS because of dizziness. Patient states he was walking outside all day today and for the last couple hours for dizzy that improved while he was in ambulance. Patient denies chest pain, shortness of breath, nausea and vomiting, focal neuro deficit, headache, fever and chills. Patient states he had 1 beer today. Patient has had frequent emergency room visits and usually requesting food, shoes and socks from emergency room. Review of Systems Review of Systems Constitutional: Denies fever or chills [] Eyes: Denies change in visual acuity, redness, or eye pain [] HENT: Denies nasal congestion or sore throat [] Respiratory: Denies cough or shortness of breath [] Cardiovascular: No additional information not addressed in HPI [] GI: Denies abdominal pain, nausea, vomiting, bloody stools or diarrhea [] : Denies dysuria or hematuria [] Musculoskeletal: Denies back pain or joint pain [] Integument: Denies rash or skin lesions [] Neurologic: Denies headache, focal weakness or sensory changes [] Endocrine: Denies polyuria or polydipsia [] All other systems were reviewed and found to be within normal limits, except as documented in this note. Allergies Allergies Allergies Coded Allergies Type Severity Reaction Last Updated Verified No Known Drug Allergies 07/26/16 No Physical Exam Physical Exam Constitutional: Well nourished, no acute distress, non-toxic appearance, smell of alcohol on breath[] HENT: Normocephalic, atraumatic Eyes: PERRLA, EOMI, conjunctiva normal, no discharge. [] Neck: Normal range of motion, no tenderness, supple, no stridor. [] Cardiovascular:Heart rate regular rhythm, no murmur [] Lungs & Thorax: Bilateral breath sounds clear to auscultation [] Abdomen: Bowel sounds normal, soft, no tenderness, no masses, no pulsatile masses. [] Skin: Warm, dry, no erythema, no rash. [] Back: No tenderness, no CVA tenderness. [] Extremities: No tenderness, no cyanosis, no clubbing, ROM intact, no edema. [] Neurologic: Alert and oriented X 3, normal motor function, normal sensory function, no focal deficits noted. [] Psychologic: Affect anxious, judgement normal, mood normal. [] EKG EKG [] Radiology/Procedures Radiology/Procedures [] Course & Med Decision Making Course & Med Decision Making Evaluation of patient in ER showed 37-year-old male patient brought in by EMS because of dizziness that resolved at arrival to ER. Patient's homeless and has had frequent emergency room visits requesting food and shoes and socks. Patient had unremarkable physical exam except for alcohol on breath and instructed to follow up with her primary care physician and increase fluid intake. He walked from emergency room without problem. Dragon Disclaimer Dragon Disclaimer This electronic medical record was generated, in whole or in part, using a voice recognition dictation system. Departure Departure: Impression: Primary Impression: Heat exposure Additional Impressions: Alcohol abuse Homelessness Tobacco abuse Tobacco abuse counseling Disposition: HOME, SELF-CARE (at 1745) Condition: STABLE Referrals: PCP,NO (PCP) Patient Instructions: Alcohol Problems, Heat Disorders-Brief, Smoking Cessation , Tips For Success Additional Instructions: Drink plenty of liquids Follow-up with your primary care physician in 3-5 days Return to ER if not getting better Problem Qualifiers PILAR DANIELS MD Nov 11, 2017 17:47
[2017-11-11 17:55] VITALS: BP 123/75
== END 2017-11-11 17:55 | disposition home or self-care (01) ==
LOC: ER 17:27
DX: T67.5XXA Heat exhaustion, unspecified, initial encounter (principal); F10.20 Alcohol dependence, uncomplicated; F17.210 Nicotine dependence, cigarettes, uncomplicated; Z59.0 Homelessness; Z71.6 Tobacco abuse counseling; Y90.9 Presence of alcohol in blood, level not specified; X58.XXXA Exposure to other specified factors, initial encounter; Y93.01 Activity, walking, marching and hiking; Y92.89 Other specified places as the place of occurrence of the external cause; Y99.8 Other external cause status
CPT/HCPCS: 99283

== ENCOUNTER 2018-05-26 21:20 | Emergency (ER) | payer SELFPAY ==
[~2018-05-26] VITALS: Ht 177.8 cm; Wt 71.8 kg
[2018-05-26 21:20] VITALS: BP 160/66
[~2018-05-26 21:20] MED LIST changes: -ALBU18HF IH; +ALBU2.5V8 IH; +ALBU2.5V8 INH; -ALBU8.5H8 INH
[2018-05-26] MEDS ORDERED: AZIT250T PO (22:07)
--- NOTE | 2018-05-26 22:07 | PHYS DOC ---
Past History Past Medical History: Bronchitis Past Surgical History: No Surgical History Smoking: Cigarettes Alcohol Use: Heavy Drug Use: None Adult General Chief Complaint Chief Complaint: COUGH HPI HPI Patient is a 37-year-old male who presents with complaint of productive cough for the last few weeks. Patient states that symptoms are aggressively getting worse. He states that he thinks he is been running a fever but does not have a thermometer. He denies any chest pain or shortness of breath. Patient states the cough is productive of dark brown sputum. Review of Systems Review of Systems Constitutional: Denies fever or chills [] Respiratory: Complains of cough without shortness of breath [] Cardiovascular: No additional information not addressed in HPI [] Neurologic: Denies headache, focal weakness or sensory changes [] Allergies Allergies Allergies Coded Allergies Type Severity Reaction Last Updated Verified No Known Drug Allergies 07/26/16 No Physical Exam Physical Exam Constitutional: Well developed, well nourished, no acute distress, non-toxic appearance. [] Neck: Normal range of motion, no tenderness, supple, no stridor. [] Cardiovascular:Heart rate regular rhythm, no murmur [] Lungs & Thorax: Fine upper airway rhonchi are noted bilaterally to auscultation [] Extremities: No tenderness, no cyanosis, no clubbing, ROM intact, no edema. [] EKG EKG [] Radiology/Procedures Radiology/Procedures [] Impressions: Two-view chest x-ray demonstrates no acute process. Course & Med Decision Making Course & Med Decision Making Pertinent Labs and Imaging studies reviewed. (See chart for details) [] Dragon Disclaimer Dragon Disclaimer This electronic medical record was generated, in whole or in part, using a voice recognition dictation system. Departure Departure: Impression: Primary Impression: Acute bronchitis Disposition: HOME, SELF-CARE Condition: STABLE Referrals: PCP,NO (PCP) Patient Instructions: Acute Bronchitis Scripts Azithromycin (ZITHROMAX) 250 Mg Tablet 1 PKG PO UD for infection, #6 TAB Prov: SHAHLA REYES Jr. DO 05/26/18 Problem Qualifiers Primary Impression: Acute bronchitis Bronchitis organism: unspecified organism Qualified Codes: J20.9 - Acute bronchitis, unspecified SHAHLA REYES Jr. DO May 26, 2018 22:07
--- NOTE | 2018-05-27 00:24 | RAD ---
PROCEDURE: CHEST PA LATERAL CLINICAL INDICATION: cough COMPARISON: 11/01/2017 FINDINGS: No pneumothorax identified. Cardiac and mediastinal contours unremarkable. No pulmonary consolidation or acute airspace disease. No acute osseous abnormalities identified. IMPRESSION: No pulmonary consolidation or acute airspace disease. Electronically signed by: Luciano Castro DO (05/27/2018 12:21 AM) [facility]
== END 2018-05-26 22:35 | disposition home or self-care (01) ==
LOC: ER 21:20
DX: J20.9 Acute bronchitis, unspecified (principal); F17.210 Nicotine dependence, cigarettes, uncomplicated; F10.20 Alcohol dependence, uncomplicated; Y90.9 Presence of alcohol in blood, level not specified
CPT/HCPCS: 71046; 99283

== ENCOUNTER 2018-07-11 01:47 | Emergency (ER) | payer SELFPAY ==
[~2018-07-11] VITALS: Ht 177.8 cm; Wt 71.8 kg
[~2018-07-11 01:47] MED LIST changes: +AZIT250T PO
--- NOTE | 2018-07-11 01:50 | ED.ADGEN ---
Past History Past Medical History: Bronchitis Past Surgical History: No Surgical History Smoking: Cigarettes Alcohol Use: Heavy Drug Use: None Adult General Chief Complaint Chief Complaint ".. I have a cough.. and some wheezing... ".." It hurts when I cough.. and take a deep breath..." HPI HPI Patient is a 38 year old male who presents with above hx and complaints of chest pain,cough, productive sputum, and pleuritic-type pain. Pt, is central and to Lt. Worse with deep breath or cough. Pain is described as severe at times. . No history of trauma. No history of travel. No history of specific ill contacts. Patient still smokes. Patient immunosuppression. Noted patient has had multiple visits for cough and chest pain and bronchitis in the emergency department. Patient did not receive a flu vaccination this season. Patient does not follow- up primary care. Pt. last seen in ED 05/26- for cough. Discharged with MDI and Zithromax Rx. Review of Systems Review of Systems Constitutional: Denies fever or chills [] Eyes: Denies change in visual acuity, redness, or eye pain [] HENT: Denies nasal congestion or sore throat [] Respiratory: Hx. cough and chest pain with deep of breath Cardiovascular: No additional information not in HPI [] GI: Denies abdominal pain, nausea, vomiting, bloody stools or diarrhea [] : Denies dysuria or hematuria [] Musculoskeletal: Denies back pain or joint pain [] Integument: Denies rash or skin lesions [] Neurologic: Denies headache, focal weakness or sensory changes [] Endocrine: Denies polyuria or polydipsia [] All other systems were reviewed and found to be within normal limits, except as documented in this note. Family History Family History Non-contributory Current Medications Current Medications Current Medications Medications (Trade) Dose Ordered Sig/Mally Start Time Stop Time Status Last Admin Dose Admin Albuterol Sulfate (Ventolin Hfa Inhaler) 2 puff 1X ONCE 07/11/18 06:30 07/11/18 06:31 DC 07/11/18 06:21 2 PUFF Azithromycin (Zithromax) 500 mg 1X ONCE 07/11/18 06:30 07/11/18 06:31 DC 07/11/18 06:24 500 MG Info (Do NOT chart on this entry -- for MONITORING) 1 each PRN DAILY PRN 07/11/18 04:30 07/11/18 07:15 DC Iohexol (Omnipaque 350 Mg/ml) 90 ml 1X ONCE 07/11/18 05:00 07/11/18 05:01 DC 07/11/18 04:42 90 ML Lactated Ringer's 1,000 ml @ 1,000 mls/hr 1X ONCE 07/11/18 04:30 07/11/18 05:29 DC 07/11/18 04:51 1,000 MLS/HR Prednisone (Prednisone) 50 mg 1X ONCE 07/11/18 06:30 07/11/18 06:31 DC 07/11/18 06:25 50 MG See Nursing for home meds Allergies Allergies Allergies Coded Allergies Type Severity Reaction Last Updated Verified No Known Drug Allergies 07/11/18 No Physical Exam Physical Exam Constitutional:, no acute distress, non-toxic appearance. [] HENT: Normocephalic, atraumatic, bilateral external ears normal, oropharynx moist, no oral exudates, nose normal. Poor dentition. Eyes: PERRLA, EOMI, conjunctiva normal, no discharge. [] Neck: Normal range of motion, no tenderness, supple, no stridor. [] Cardiovascular:Bradycardia Heart rate regular rhythm, no murmur [] Lungs & Thorax: Bilateral breath sounds equal apexes with scattered wheezes on auscultation [] Abdomen: Bowel sounds normal, soft, no tenderness, no masses, no pulsatile masses. [] Skin: Warm, dry, no erythema, no rash. [] Back: No tenderness, no CVA tenderness. [] Extremities: No tenderness, no cyanosis, no clubbing, ROM intact, no edema. No cording appreciated. Neurologic: Alert and oriented X 3, normal motor function, normal sensory function, no focal deficits noted. [] Psychologic: Affect flat, judgement normal, mood normal. [] Current Patient Data Vital Signs Vital Signs Date Time Temp Pulse Resp B/P (MAP) Pulse Ox O2 Delivery O2 Flow Rate FiO2 07/11/18 06:28 97.9 72 20 117/87 (97) 99 Room Air Lab Results Laboratory Tests Test 07/11/18 02:30 White Blood Count 3.4 x10^3/uL (4.0-11.0) L Red Blood Count 4.79 x10^6/uL (4.30-5.70) Hemoglobin 14.6 g/dL (13.0-17.5) Hematocrit 43.1 % (39.0-53.0) Mean Corpuscular Volume 90 fL (79-100) Mean Corpuscular Hemoglobin 30 pg (25-35) Mean Corpuscular Hemoglobin Concent 34 g/dL (31-37) Red Cell Distribution Width 15.0 % (11.5-14.5) H Platelet Count 259 x10^3/uL (140-400) Neutrophils (%) (Auto) 47 % (31-73) Lymphocytes (%) (Auto) 40 % (24-48) Monocytes (%) (Auto) 9 % (0-9) Eosinophils (%) (Auto) 2 % (0-3) Basophils (%) (Auto) 3 % (0-3) Neutrophils # (Auto) 1.6 x10^3uL (1.8-7.7) L Lymphocytes # (Auto) 1.4 x10^3/uL (1.0-4.8) Monocytes # (Auto) 0.3 x10^3/uL (0.0-1.1) Eosinophils # (Auto) 0.1 x10^3/uL (0.0-0.7) Basophils # (Auto) 0.1 x10^3/uL (0.0-0.2) Segmented Neutrophils % 54 % (35-66) Lymphocytes % 32 % (24-48) Atypical Lymphocytes % (Manual) 6 % (0-0) H Monocytes % 7 % (0-10) Eosinophils % 1 % (0-5) Platelet Estimate Adequate (ADEQUATE) Anisocytosis Slight Prothrombin Time 10.1 SEC (9.4-11.4) Prothrombin Time INR 1.0 (0.9-1.1) PTT 28 SEC (23-33) D-Dimer (Sophia) 0.58 mg/L (0.00-0.50) H Sodium Level 141 mmol/L (136-145) Potassium Level 3.3 mmol/L (3.5-5.1) L Chloride Level 103 mmol/L (98-107) Carbon Dioxide Level 26 mmol/L (21-32) Anion Gap 12 (6-14) Blood Urea Nitrogen 13 mg/dL (8-26) Creatinine 0.9 mg/dL (0.7-1.3) Estimated GFR (Cockcroft-Gault) 114.3 BUN/Creatinine Ratio 14 (6-20) Glucose Level 88 mg/dL (70-99) Calcium Level 8.7 mg/dL (8.5-10.1) Total Bilirubin 0.5 mg/dL (0.2-1.0) Aspartate Amino Transferase (AST) 30 U/L (15-37) Alanine Aminotransferase (ALT) 37 U/L (16-63) Alkaline Phosphatase 63 U/L (46-116) Troponin I Quantitative < 0.017 ng/mL (0-0.055) Total Protein 7.1 g/dL (6.4-8.2) Albumin 3.9 g/dL (3.4-5.0) Albumin/Globulin Ratio 1.2 (1.0-1.7) EKG EKG My interpretation EKG shows a sinus rhythm at 63 bpm. This was nonspecific contour changes anterior lateral leads. But no findings acute STEMI with contralateral changes. Does have findings of[] Radiology/Procedures Radiology/Procedures I interpretation chest x-ray shows[] chronic changes with some nonspecific basilar infiltrates Course & Med Decision Making Course & Med Decision Making Pertinent Labs and Imaging studies reviewed. (See chart for details) She uses MDI 2 puffs 4 times a day. Patient take prednisone 50 mg a day for 5 days. Patient take his Zithromax 250 day for 5 days. Patient strongly encouraged to stop smoking. Patient follow-up primary care. Return if any concerns. [] Final Impression Final Impression 1. Bronchitis 2. Tobacco and Marijuana Use 3. Pleuritic chest pain 4. Mild elevation D-dimer 5. CT= ground glass changes consistent with bronchitis/chronic changes Dragon Disclaimer Dragon Disclaimer This electronic medical record was generated, in whole or in part, using a voice recognition dictation system. Discharge Summary Visit Information Final Diagnosis Problems Medical Problems: (1) Bronchitis Status: Acute Brief Hospital Course Allergies Allergies Coded Allergies Type Severity Reaction Last Updated Verified No Known Drug Allergies 07/11/18 No Vital Signs Vital Signs Date Time Temp Pulse Resp B/P (MAP) Pulse Ox O2 Delivery O2 Flow Rate FiO2 07/11/18 06:28 97.9 72 20 117/87 (97) 99 Room Air Lab Results Laboratory Tests Test 07/11/18 02:30 White Blood Count 3.4 x10^3/uL (4.0-11.0) Red Blood Count 4.79 x10^6/uL (4.30-5.70) Hemoglobin 14.6 g/dL (13.0-17.5) Hematocrit 43.1 % (39.0-53.0) Mean Corpuscular Volume 90 fL (79-100) Mean Corpuscular Hemoglobin 30 pg (25-35) Mean Corpuscular Hemoglobin Concent 34 g/dL (31-37) Red Cell Distribution Width 15.0 % (11.5-14.5) Platelet Count 259 x10^3/uL (140-400) Neutrophils (%) (Auto) 47 % (31-73) Lymphocytes (%) (Auto) 40 % (24-48) Monocytes (%) (Auto) 9 % (0-9) Eosinophils (%) (Auto) 2 % (0-3) Basophils (%) (Auto) 3 % (0-3) Neutrophils # (Auto) 1.6 x10^3uL (1.8-7.7) Lymphocytes # (Auto) 1.4 x10^3/uL (1.0-4.8) Monocytes # (Auto) 0.3 x10^3/uL (0.0-1.1) Eosinophils # (Auto) 0.1 x10^3/uL (0.0-0.7) Basophils # (Auto) 0.1 x10^3/uL (0.0-0.2) Segmented Neutrophils % 54 % (35-66) Lymphocytes % 32 % (24-48) Atypical Lymphocytes % (Manual) 6 % (0-0) Monocytes % 7 % (0-10) Eosinophils % 1 % (0-5) Platelet Estimate Adequate (ADEQUATE) Anisocytosis Slight Prothrombin Time 10.1 SEC (9.4-11.4) Prothromb Time International Ratio 1.0 (0.9-1.1) Activated Partial Thromboplast Time 28 SEC (23-33) D-Dimer (Sophia) 0.58 mg/L (0.00-0.50) Sodium Level 141 mmol/L (136-145) Potassium Level 3.3 mmol/L (3.5-5.1) Chloride Level 103 mmol/L (98-107) Carbon Dioxide Level 26 mmol/L (21-32) Anion Gap 12 (6-14) Blood Urea Nitrogen 13 mg/dL (8-26) Creatinine 0.9 mg/dL (0.7-1.3) Estimated GFR (Cockcroft-Gault) 114.3 BUN/Creatinine Ratio 14 (6-20) Glucose Level 88 mg/dL (70-99) Calcium Level 8.7 mg/dL (8.5-10.1) Total Bilirubin 0.5 mg/dL (0.2-1.0) Aspartate Amino Transf (AST/SGOT) 30 U/L (15-37) Alanine Aminotransferase (ALT/SGPT) 37 U/L (16-63) Alkaline Phosphatase 63 U/L (46-116) Troponin I Quantitative < 0.017 ng/mL (0-0.055) Total Protein 7.1 g/dL (6.4-8.2) Albumin 3.9 g/dL (3.4-5.0) Albumin/Globulin Ratio 1.2 (1.0-1.7) Brief Hospital Course Mr. Dove is a 38 old male who presented with Bronchitis. Discharge Information Condition at Discharge: Improved, Stable Disposition/Orders: D/C to Home Dischare Medications Current Medications Lactated Ringer's 1,000 ml @ 1,000 mls/hr 1X ONCE IV Last administered on 07/11/18at 04:51; Admin Dose 1,000 MLS/HR; Start 07/11/18 at 04:30; Stop 07/11/18 at 05:29; Status DC Iohexol (Omnipaque 350 Mg/ml) 90 ml 1X ONCE IV Last administered on 07/11/18at 04:42; Admin Dose 90 ML; Start 07/11/18 at 05:00; Stop 07/11/18 at 05:01; Status DC Info (Do NOT chart on this entry -- for MONITORING) 1 each PRN DAILY PRN MC SEE COMMENTS; Start 07/11/18 at 04:30; Stop 07/11/18 at 07:15; Status DC Prednisone (Prednisone) 50 mg 1X ONCE PO Last administered on 07/11/18at 06:25; Admin Dose 50 MG; Start 07/11/18 at 06:30; Stop 07/11/18 at 06:31; Status DC Albuterol Sulfate (Ventolin Hfa Inhaler) 2 puff 1X ONCE INH Last administered on 07/11/18at 06:21; Admin Dose 2 PUFF; Start 07/11/18 at 06:30; Stop 07/11/18 at 06:31; Status DC Azithromycin (Zithromax) 500 mg 1X ONCE PO Last administered on 07/11/18at 06:24; Admin Dose 500 MG; Start 07/11/18 at 06:30; Stop 07/11/18 at 06:31; Status DC Active Scripts Active Zithromax (Azithromycin) 250 Mg Tablet 250 Mg PO DAILY 5 Days Prednisone 50 Mg Tablet 50 Mg PO DAILY 5 Days Tin Disclaimer This chart was dictated in whole or in part using Voice Recognition software in a busy, high-work load, and often noisy Emergency Department environment. It may contain unintended and wholly unrecognized errors or omissions. ANN-MARIE ROSE MD Jul 11, 2018 01:50
[2018-07-11 02:52] LABS: BASO # 0.1 x10^3/uL (0.0-0.2); BASO % 3 % (0-3); EOS # 0.1 x10^3/uL (0.0-0.7); EOS % 2 % (0-3); HEMATOCRIT 43.1 % (39.0-53.0); HEMOGLOBIN 14.6 g/dL (13.0-17.5); LYMPH # 1.4 x10^3/uL (1.0-4.8); LYMPH % 40 % (24-48); MEAN CORPUSCULAR HEMOGLOBIN 30 pg (25-35); MEAN CORPUSCULAR HGB CONC 34 g/dL (31-37); MEAN CORPUSCULAR VOLUME 90 fL (79-100); MONO # 0.3 x10^3/uL (0.0-1.1); MONO % 9 % (0-9); NEUT # 1.6 x10^3uL (1.8-7.7); NEUT % 47 % (31-73); PLATELET COUNT 259 x10^3/uL (140-400); RED BLOOD COUNT 4.79 x10^6/uL (4.30-5.70); WHITE BLOOD COUNT 3.4 x10^3/uL (4.0-11.0)
--- NOTE | 2018-07-11 02:55 | EKG ---
[address] [address] Test Date: 2018-07-11 Test Time: 02:47:10 Pat Name: NICK ELLSWORTH Department: Room: Gender: M Source Inspector: : [id number] Requested By: ANN-MARIE ROSE Order Number: [id number] Reading MD: Andrzej Benjamin Measurements Intervals [place] Rate: 63 P: 20 MN: 176 QRS: 73 QRSD: 86 T: 27 QT: 388 QTc: 400 Interpretive Statements SINUS RHYTHM NONSPECIFIC ST-T WAVE CHANGES. Electronically Signed On 07-15-2018 13:07:56 CDT by Andrzej Benjamin
[2018-07-11 03:21] LABS: % ATYL 6 % (0-0); % EOS 1 % (0-5); % LYMPHS 32 % (24-48); % MONOS 7 % (0-10); % SEGS 54 % (35-66)
[2018-07-11 03:22] LABS: ANISOCYTOSIS SLIGHT; PLT ESTIMATE ADEQUATE (ADEQUATE)
[2018-07-11 04:00] LABS: ALBUMIN 3.9 g/dL (3.4-5.0); ALBUMIN/GLOBULIN RATIO 1.2 (1.0-1.7); CALCIUM 8.7 mg/dL (8.5-10.1); CREATININE 0.9 mg/dL (0.7-1.3); GFR 114.3; POTASSIUM 3.3 mmol/L (3.5-5.1); TOTAL BILIRUBIN 0.5 mg/dL (0.2-1.0); TOTAL PROTEIN 7.1 g/dL (6.4-8.2)
[2018-07-11] MEDS ORDERED: IV RINGERS SOLUTION,LACTATED 1,000 ML IV ONE (04:30)
[2018-07-11] MEDS ORDERED: CONTRAST GIVEN MC PRN (04:30)
[2018-07-11] MEDS ORDERED: IOHEXOL 350 MG/ML 100 ML VIAL. IV ONE (05:00)
[2018-07-11] MEDS ORDERED: PRED50TA PO (05:53)
--- NOTE | 2018-07-11 06:07 | RAD ---
INDICATION: Chest pain, dyspnea, pleurisy. Hx recent bronchitis COMPARISON: May 26 chest x-ray TECHNIQUE: Axial CT images obtained through the chest with contrast with three-dimensional images processed per protocol. One or more of the following individualized dose reduction techniques were utilized for this examination: 1. Automated exposure control; 2. Adjustment of the mA and/or kV according to patient size; 3. Use of iterative reconstruction technique. FINDINGS: Motion limits the exam. No evidence of pneumothorax. Mild cystic changes. There is suggestion of some groundglass nodular opacities. Probable calcified granuloma right lung. Small amount of debris in the airway. Partially visualized liver appears low attenuation. Nonspecific but mild fatty infiltration is not excluded. Small amount of soft tissue density anterior mediastinum. Could be residual thymus given the appearance. Very little contrast within the thoracic aorta therefore the lumen is not well evaluated. No evidence of thoracic aortic aneurysm. Degenerative changes of the spine. No central pulmonary embolus. IMPRESSION: 1. No central pulmonary embolus. 2. Mild groundglass nodular opacities are suspected. Could be infectious or inflammatory in nature with causes such as bronchitis within the differential. Electronically signed by: Lc Cobb MD (07/11/2018 6:05 AM) [facility]
[2018-07-11] MEDS ORDERED: AZIT250T PO (06:12)
[2018-07-11 06:28] VITALS: BP 117/87
[2018-07-11] MEDS ORDERED: ALBUTEROL SULFATE 8GM INHALER. INH ONE (06:30)
[2018-07-11] MEDS ORDERED: AZITHROMYCIN 250 MG TABLET. PO ONE (06:30)
[2018-07-11] MEDS ORDERED: predniSONE 10 MG TABLET PO ONE (06:30)
--- NOTE | 2018-07-11 08:17 | RAD ---
CHEST PA LATERAL History: Cough, chest pain Comparison: May 26, 2018 Findings: 2 views of the chest are submitted. There is no infiltrate, pneumothorax, or effusion. The cardiac silhouette is within normal limits in size. The trachea is in the midline. No acute osseous abnormality is identified. Impression: 1. There is no evidence of acute cardiopulmonary disease. Electronically signed by: Agustin Vaughn MD (07/11/2018 8:14 AM) [facility]
== END 2018-07-11 06:32 | disposition home or self-care (01) ==
LOC: ER 01:47
DX: J40 Bronchitis, not specified as acute or chronic (principal); R07.81 Pleurodynia; R79.1 Abnormal coagulation profile; R93.1 Abnormal findings on diagnostic imaging of heart and coronary circulation; F17.210 Nicotine dependence, cigarettes, uncomplicated; F12.90 Cannabis use, unspecified, uncomplicated; F10.20 Alcohol dependence, uncomplicated; Y90.9 Presence of alcohol in blood, level not specified
CPT/HCPCS: 36415; 71046; 71275; 80053; 84484; 85007; 85025; 85379; 85610; 85730; 93005; 94640; 99285; J0456; J7120; J7512; J7613; Q9967

== ENCOUNTER 2018-07-21 22:47 | Emergency (ER) | payer SELFPAY ==
[~2018-07-21] VITALS: Ht 177.8 cm; Wt 71.8 kg
[2018-07-21 22:47] VITALS: BP 138/66
--- NOTE | 2018-07-21 22:51 | ED.ADGEN ---
Past History Past Medical History: Anxiety, Asthma, Bronchitis Past Surgical History: No Surgical History Smoking: Cigarettes Alcohol Use: Heavy Drug Use: None Adult General Chief Complaint Chief Complaint ".. My inhaler ran out...".. " My friend said.. I looked bad.. and needed to come in..." HPI HPI Patient is a 38 year old male who presents with hx of bronchitis, asthma and tobacco use. Pt. reports he MDI ran out. Patient has had numerous visits to the emergency department for asthma and bronchitis approximate 14 visits in the past year. Patient denies any history immunosuppression. Patient denies any travel. Patient denies any specific ill contacts. Review of Systems Review of Systems Constitutional: Denies fever or chills [] Eyes: Denies change in visual acuity, redness, or eye pain [] HENT: Denies nasal congestion or sore throat [] Respiratory: Complaints of nonproductive cough and wheezing Cardiovascular: No additional information not addressed in HPI [] GI: Denies abdominal pain, nausea, vomiting, bloody stools or diarrhea [] : Denies dysuria or hematuria [] Musculoskeletal: Denies back pain or joint pain [] Integument: Denies rash or skin lesions [] Neurologic: Denies headache, focal weakness or sensory changes [] Endocrine: Denies polyuria or polydipsia [] All other systems were reviewed and found to be within normal limits, except as documented in this note. Family History Family History Noncontributory Current Medications Current Medications Current Medications Medications (Trade) Dose Ordered Sig/Mally Start Time Stop Time Status Last Admin Dose Admin Albuterol Sulfate (Ventolin Hfa Inhaler) 2 puff 1X ONCE 07/21/18 23:00 07/21/18 23:01 DC 07/21/18 23:04 2 PUFF Prednisone (Prednisone) 50 mg 1X ONCE 07/21/18 23:00 07/21/18 23:01 DC 07/21/18 23:04 50 MG Allergies Allergies Allergies Coded Allergies Type Severity Reaction Last Updated Verified No Known Drug Allergies 07/11/18 No Physical Exam Physical Exam Constitutional: no acute distress, non-toxic appearance. [] HENT: Normocephalic, atraumatic, bilateral external ears normal, oropharynx moist, no oral exudates, nose swollen turbinates and clear rhinorrhea Eyes: PERRLA, EOMI, conjunctiva normal, no discharge. [] Neck: Normal range of motion, no tenderness, supple, no stridor. [] Cardiovascular:Heart rate regular rhythm, no murmur [] Lungs & Thorax: Bilateral breath sounds with apex with few scattered wheezes auscultation [] Abdomen: Bowel sounds normal, soft, no tenderness, no masses, no pulsatile masses. [] Skin: Warm, dry, no erythema, no rash. [] Back: No tenderness, no CVA tenderness. [] Extremities: No tenderness, no cyanosis, no clubbing, ROM intact, no edema. [] Neurologic: Alert and oriented X 3, normal motor function, normal sensory function, no focal deficits noted. [] Psychologic: Affect flat, judgement normal, mood normal. [] Current Patient Data Vital Signs Vital Signs Date Time Temp Pulse Resp B/P (MAP) Pulse Ox O2 Delivery O2 Flow Rate FiO2 07/21/18 22:47 97.4 60 18 98 Room Air EKG EKG [] Radiology/Procedures Radiology/Procedures [] Course & Med Decision Making Course & Med Decision Making Pertinent Labs and Imaging studies reviewed. (See chart for details).. Patient must stop smoking. Encouraged patient to follow-up primary care. Patient uses MDI 2 puffs 4 times a day. Patient to use Benadryl [id number] 20/5/50 milligrams 4 times a day for drainage and congestion. Patient to take prednisone 50 mg a day for 5 days. [] Final Impression Final Impression 1. Bronchitis 2. Asthma 3. Tobacco Use[] 4. Anxiety Dragon Disclaimer Dragon Disclaimer This electronic medical record was generated, in whole or in part, using a voice recognition dictation system. Discharge Summary Visit Information Final Diagnosis Problems Medical Problems: (1) Asthma Status: Acute (2) Bronchitis Status: Acute Brief Hospital Course Allergies Allergies Coded Allergies Type Severity Reaction Last Updated Verified No Known Drug Allergies 07/11/18 No Vital Signs Vital Signs Date Time Temp Pulse Resp B/P (MAP) Pulse Ox O2 Delivery O2 Flow Rate FiO2 07/21/18 22:47 97.4 60 18 98 Room Air Brief Hospital Course Mr. Dove is a 38 old male who presented with bronchitis. Discharge Information Condition at Discharge: Improved, Stable Disposition/Orders: D/C to Home Dischare Medications Current Medications Prednisone (Prednisone) 50 mg 1X ONCE PO Last administered on 07/21/18at 23:04; Admin Dose 50 MG; Start 07/21/18 at 23:00; Stop 07/21/18 at 23:01; Status DC Albuterol Sulfate (Ventolin Hfa Inhaler) 2 puff 1X ONCE INH Last administered on 07/21/18at 23:04; Admin Dose 2 PUFF; Start 07/21/18 at 23:00; Stop 07/21/18 at 23:01; Status DC Active Scripts Active Prednisone 50 Mg Tablet 50 Mg PO DAILY 5 Days Zithromax (Azithromycin) 250 Mg Tablet 250 Mg PO DAILY 5 Days Prednisone 50 Mg Tablet 50 Mg PO DAILY 5 Days Dragon Disclaimer This chart was dictated in whole or in part using Voice Recognition software in a busy, high-work load, and often noisy Emergency Department environment. It may contain unintended and wholly unrecognized errors or omissions. ANN-MARIE ROSE MD July 21, 2018 22:51
[2018-07-21] MEDS ORDERED: PRED50TA PO (22:58)
[2018-07-21] MEDS ORDERED: ALBUTEROL SULFATE 8GM INHALER. INH ONE (23:00)
[2018-07-21] MEDS ORDERED: predniSONE 10 MG TABLET PO ONE (23:00)
== END 2018-07-21 23:35 | disposition home or self-care (01) ==
LOC: ER 22:47
DX: J45.909 Unspecified asthma, uncomplicated (principal); F41.9 Anxiety disorder, unspecified; F17.210 Nicotine dependence, cigarettes, uncomplicated; F10.20 Alcohol dependence, uncomplicated; Y90.9 Presence of alcohol in blood, level not specified
CPT/HCPCS: 94640; 99283; J7512; J7613

== ENCOUNTER 2018-09-16 00:06 | Emergency (ER) | payer SELFPAY ==
[2018-09-16 00:24] VITALS: BP 117/84
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
[2018-09-16] MEDS ORDERED: KETOROLAC 15 MG/ML VIAL. IV ONE (00:45)
[2018-09-16] MEDS: KETOROLAC 15 MG/ML VIAL. IM ONE (01:04)
[2018-09-16] MEDS ORDERED: MELO7.5T29 PO (01:08)
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
--- NOTE | 2018-09-16 07:42 | RAD ---
Examination: FOREARM RIGHT History: Pain Comparison/Correlation: None Findings: Two-view exam of the right forearm performed. Joint spaces are normal. No fracture or bony destruction. Soft tissues are unremarkable. No degenerative change. No joint effusion at the elbow suspected. Impression: Unremarkable exam. Electronically signed by: Robert Leon MD (09/16/2018 7:39 AM) [facility]
== END 2018-09-16 01:20 | disposition home or self-care (01) ==
LOC: ER 00:06
DX: S50.11XA Contusion of right forearm, initial encounter (principal); R07.89 Other chest pain; F41.9 Anxiety disorder, unspecified; J45.909 Unspecified asthma, uncomplicated; F17.210 Nicotine dependence, cigarettes, uncomplicated; F10.20 Alcohol dependence, uncomplicated; Y90.9 Presence of alcohol in blood, level not specified; V18.4XXA Pedal cycle driver injured in noncollision transport accident in traffic accident, initial encounter; Y93.55 Activity, bike riding; Y92.828 Other wilderness area as the place of occurrence of the external cause; Y99.8 Other external cause status
CPT/HCPCS: 71101; 73090; 96372; 99284; J1885

== ENCOUNTER 2019-02-23 23:21 | Emergency (ER) | payer SELFPAY ==
[~2019-02-23] VITALS: Ht 177.8 cm; Wt 71.8 kg
[~2019-02-23 23:21] MED LIST changes: +MELO7.5T29 PO
[2019-02-23] MEDS ORDERED: ONDANSETRON PF 4 MG/2 ML VIAL. IVP ONE (23:45)
[2019-02-23] MEDS ORDERED: IV NORMAL SALINE 1,000ML 1,000 ML IV ONE (23:45)
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
[2019-02-24 00:27] LABS: BASO % 0 % (0-3); EOS % 0 % (0-3); HEMATOCRIT 46.7 % (39.0-53.0); HEMOGLOBIN 15.6 g/dL (13.0-17.5); LYMPH # 0.2 x10^3/uL (1.0-4.8); LYMPH % 3 % (24-48); MEAN CORPUSCULAR HEMOGLOBIN 31 pg (25-35); MEAN CORPUSCULAR HGB CONC 33 g/dL (31-37); MEAN CORPUSCULAR VOLUME 92 fL (79-100); MONO # 0.3 x10^3/uL (0.0-1.1); MONO % 4 % (0-9); NEUT % 93 % (31-73); PLATELET COUNT 234 x10^3/uL (140-400); RED BLOOD COUNT 5.09 x10^6/uL (4.30-5.70); RED CELL DISTRIBUTION WIDTH 15.4 % (11.5-14.5); WHITE BLOOD COUNT 7.6 x10^3/uL (4.0-11.0)
[2019-02-24 00:32] LABS: ALBUMIN 4.1 g/dL (3.4-5.0); ALBUMIN/GLOBULIN RATIO 1.2 (1.0-1.7); CALCIUM 8.8 mg/dL (8.5-10.1); CREATININE 0.9 mg/dL (0.7-1.3); GFR 114.3; POTASSIUM 3.5 mmol/L (3.5-5.1); TOTAL PROTEIN 7.5 g/dL (6.4-8.2)
[2019-02-24] MEDS ORDERED: PROCHLORPERAZINE 10 MG/2 ML VIAL. IV ONE (01:00)
[2019-02-24] MEDS ORDERED: diphenhydrAMINE 50 MG/ML VIAL IVP ONE (01:00)
[2019-02-24 01:40] VITALS: BP 157/94
== END 2019-02-24 01:40 | disposition home or self-care (01) ==
LOC: ER 23:21
DX: R11.2 Nausea with vomiting, unspecified (principal); J45.909 Unspecified asthma, uncomplicated; F41.9 Anxiety disorder, unspecified; F17.210 Nicotine dependence, cigarettes, uncomplicated; F10.20 Alcohol dependence, uncomplicated; Y90.9 Presence of alcohol in blood, level not specified
CPT/HCPCS: 36415; 80053; 85025; 96361; 96374; 99284; J2405; J7030

== ENCOUNTER 2019-06-03 07:06 | Emergency (ER) | payer SELFPAY ==
[~2019-06-03] VITALS: Ht 177.8 cm; Wt 70.4 kg
[2019-06-03 07:06] VITALS: BP 129/82
--- NOTE | 2019-06-03 07:56 | PHYS DOC ---
Past History Past Medical History: Anxiety, Asthma, Bronchitis Past Surgical History: No Surgical History Smoking: Cigarettes Alcohol Use: Heavy Drug Use: Cocaine, Marijuana Adult General Chief Complaint Chief Complaint: FOOT INJURY PAIN HPI HPI Patient is a 38-year-old male who presents with complaint of burning to his left great toe and thickening to the toenail. Patient denies any recent injuries. He states that he just got out of [facility] and his socks and shoes got wet and he is also requesting some hospital socks.[] Review of Systems Review of Systems Constitutional: Denies fever or chills [] Respiratory: Denies cough or shortness of breath [] Cardiovascular: No additional information not addressed in HPI [] Musculoskeletal: Complains of left great toe burning pain [] Integument: Denies rash or skin lesions [] Allergies Allergies Allergies Coded Allergies Type Severity Reaction Last Updated Verified No Known Drug Allergies 07/11/18 No Physical Exam Physical Exam Constitutional: Well developed, well nourished, no acute distress, non-toxic appearance. [] Cardiovascular:Heart rate regular rhythm, no murmur [] Lungs & Thorax: Bilateral breath sounds clear to auscultation [] Skin: Warm, dry, no erythema, no rash. [] Extremities: No tenderness, no cyanosis, no clubbing, ROM intact, with thickening and discoloration to the left great toenail. [] EKG EKG [] Radiology/Procedures Radiology/Procedures [] Course & Med Decision Making Course & Med Decision Making Pertinent Labs and Imaging studies reviewed. (See chart for details) [] Dragon Disclaimer Dragon Disclaimer This electronic medical record was generated, in whole or in part, using a voice recognition dictation system. Departure Departure: Impression: Primary Impression: Toenail fungus Disposition: AGAINST MEDICAL ADVICE (An MSE has been performed and patient's case does not represent medical emergency. Patient has elected not to pay fee for service) Condition: STABLE Referrals: PCP,NO (PCP) SHAHLA REYES Jr. DO Jun 03, 2019 07:56
[2019-06-04] MEDS ORDERED: ALBU2.5V8 IH (01:28)
[2019-06-04] MEDS ORDERED: PRED50TA PO (01:28)
== END 2019-06-03 07:55 | disposition left against medical advice (07) ==
LOC: ER 07:06
DX: B35.1 Tinea unguium (principal); J45.909 Unspecified asthma, uncomplicated; F17.210 Nicotine dependence, cigarettes, uncomplicated; F10.20 Alcohol dependence, uncomplicated; Y90.9 Presence of alcohol in blood, level not specified
CPT/HCPCS: 99281

== ENCOUNTER 2019-06-03 23:09 | Emergency (ER) | payer SELFPAY ==
[~2019-06-03] VITALS: Ht 185.4 cm; Wt 82.0 kg
--- NOTE | 2019-06-03 23:33 | PHYS DOC ---
Past History Past Medical History: Alcoholism, Anxiety, Asthma, Bronchitis, COPD Past Surgical History: No Surgical History Smoking: Cigarettes Alcohol Use: Heavy Drug Use: Cocaine, Marijuana Adult General Chief Complaint Chief Complaint: ".. I ve been short of breath today.. wheezing more... ".. " I got Asthma... " [facility] HPI Patient is a 38 year old male who presents with above hx and complaints dizzy, short of breath, increased wheezing and nonproductive cough. Patient does continue to smoke approximately 1-2 packs per day. Patient does smoke marijuana daily. Patient does take alcohol daily. Patient denies any travel. Patient denies any specific ill contacts. Patient denies any history of immunosuppression or HIV. Patient denies any recent travel outside of [place]. Patient advised it has been diagnosed in the past with COPD. 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 No recent industrial exposure to toxins. Patient states he's only been using marijuana and alcohol today. Patient had frequent ED evaluations for bronchitis. Patient states he walked approximately 5 blocks to get here and ask if he could sleep and the emergency department tonight. Patient does not know his best peak flow. Patient denies any history of intubation for asthma exacerbation. Patient does not do seasonal flu vaccinations. Patient has not had a Pneumovax. Patient appears to have frequent ED visits. Patient does not follow-up primary care. Patient states he normally just goes to emergency department for care at [place] or [place]. Review of Systems Review of Systems Constitutional: Denies fever or chills [] Eyes: Denies change in visual acuity, redness, or eye pain [] HENT: Complaints of nasal congestion Respiratory: Complaints of a nonproductive cough and wheezing. Cardiovascular: No additional information not addressed in HPI [] GI: Denies abdominal pain, nausea, vomiting, bloody stools or diarrhea [] : Denies dysuria or hematuria [] Musculoskeletal: Denies back pain or joint pain [] Integument: Denies rash or skin lesions [] Neurologic: Denies headache, focal weakness or sensory changes [] Endocrine: Denies polyuria or polydipsia [] All other systems were reviewed and found to be within normal limits, except as documented in this note. Family History Family History Noncontributory to presentation Current Medications Current Medications See nursing for home meds Allergies Allergies Allergies Coded Allergies Type Severity Reaction Last Updated Verified No Known Drug Allergies 07/11/18 No Physical Exam Physical Exam Constitutional:, no acute distress, non-toxic appearance. [] HENT: Normocephalic, atraumatic, bilateral external ears normal, oropharynx moist, postnasal drainage, no oral exudates, nose swollen turbinates and clear rhinorrhea. Poor dentition Eyes: PERRLA, EOMI, conjunctiva normal, no discharge. [] Neck: Normal range of motion, no tenderness, supple, no stridor. [] Cardiovascular:Heart rate regular rhythm, no murmur [] Lungs & Thorax: Bilateral breath sounds equal apex scattered wheezes throughout on auscultation [] Abdomen: Bowel sounds normal, soft, no tenderness, no masses, no pulsatile masses. [] Skin: Warm, dry, no erythema, no rash. [] Back: No tenderness, no CVA tenderness. [] Extremities: No tenderness, no cyanosis, no clubbing, ROM intact, no edema. No cording appreciated in legs Neurologic: Alert and oriented X 3, normal motor function, normal sensory function, no focal deficits noted. [] Psychologic: Affect anxious, judgement normal, mood normal. [] EKG EKG [] Radiology/Procedures Radiology/Procedures [] Course & Med Decision Making Course & Med Decision Making Pertinent Labs and Imaging studies reviewed. (See chart for details) Strongly encouraged patient avoid illicit drug use and tobacco use. Follow-up primary care. Use MDI 2 puffs 4 times a day. Take prednisone 50 mg a day. Strongly encouraged pt. to stop smoking. Recommend pt. get a flu and Pneumovax vaccination on follow up with primary when off the prednisone. Impression: 1. Bronchitis 2. Tobacco and marijuana Use 3. History of alcohol abuse 4. History of asthma [] Dragon Disclaimer Dragon Disclaimer This electronic medical record was generated, in whole or in part, using a voice recognition dictation system. Departure Departure: Disposition: 01 HOME/RESIDENCE PRIOR TO ADM Condition: STABLE Referrals: PCP,NO (PCP) Scripts Albuterol Sulfate (VENTOLIN HFA INHALER) 18 Gm Hfa.aer.ad 2 PUFF IH QIDPRN PRN for FOR ASTHMA for 30 Days, INHALER 0 Refills Prov: ANN-MARIE ROSE MD 06/04/19 Prednisone (PREDNISONE) 50 Mg Tablet 1 TAB PO DAILY for bronchitis, #5 TAB Prov: ANN-MARIE ROSE MD 06/04/19 Tin Disclaimer This chart was dictated in whole or in part using Voice Recognition software in a busy, high-work load, and often noisy Emergency Department environment. It may contain unintended and wholly unrecognized errors or omissions. ANN-MARIE ROSE MD Jun 03, 2019 23:33
[2019-06-04] MEDS ORDERED: IPRATRPIUM/ALBUTEROL 0.5/2.5MG 3 ML NEBU. NEB ONE
[2019-06-04] MEDS ORDERED: predniSONE 10 MG TABLET PO ONE (00:15)
[2019-06-04] MEDS ORDERED: ALBU2.5V8 IH (01:28)
[2019-06-04] MEDS ORDERED: PRED50TA PO (01:28)
[2019-06-04 01:34] VITALS: BP 116/66
[2019-06-04 01:47] LABS: BARBITURATES NEG (NEG); BENZODIAZEPINES NEG (NEG); CANNABINOIDS POS (NEG); COCAINE NEG (NEG); METHADONE NEG (NEG); OPIATES NEG (NEG); PHENCYCLIDINE NEG (NEG)
[2019-06-04 01:48] LABS: BACTERIA,URINE 0 /HPF (0-FEW); BILIRUBIN,URINE NEG (NEG); CLARITY,URINE CLEAR; COLOR,URINE YELLOW; GLUCOSE,URINE NEG (NEG); NITRITE,URINE NEG (NEG); RBC,URINE 0 /HPF (0-2); UROBILINOGEN,URINE 0.2 mg/dL (0.2 mg/dL); WBC,URINE 0 /HPF (0-4)
[2019-06-04 01:49] LABS: AMPHETAMINE/METHAMPHETAMINE NEG (NEG)
== END 2019-06-04 01:35 | disposition home or self-care (01) ==
LOC: ER 23:09
DX: J44.9 Chronic obstructive pulmonary disease, unspecified (principal); F10.20 Alcohol dependence, uncomplicated; F17.210 Nicotine dependence, cigarettes, uncomplicated; F14.10 Cocaine abuse, uncomplicated; F12.10 Cannabis abuse, uncomplicated; Y90.9 Presence of alcohol in blood, level not specified
CPT/HCPCS: 36415; 80307; 81001; 94640; 99283; J7512

== ENCOUNTER 2020-08-24 01:27 | Emergency (ER) | payer SELFPAY ==
[~2020-08-24] VITALS: Ht 185.4 cm; Wt 74.0 kg
[2020-08-24] MEDS ORDERED: FOLIC ACID 1 MG TABLET PO ONE (01:45)
[2020-08-24] MEDS ORDERED: MVI, ADULT NO.4 WITH VIT K 10 ML, THIAMINE INJ 100 MG in IV NORMAL SALINE 1,000ML 1,000... IV ONE (01:45)
[2020-08-24] MEDS ORDERED: MVI, ADULT NO.4 WITH VIT K 10 ML VIAL IV ONE (01:47)
[2020-08-24] MEDS ORDERED: THIAMINE 200 MG/2 ML VIAL. IV ONE (01:47)
--- NOTE | 2020-08-24 01:52 | PHYS DOC ---
Past History Past Medical History: Alcoholism, Anxiety, Asthma, Bronchitis, COPD Past Surgical History: No Surgical History Smoking: Cigarettes Alcohol Use: None Drug Use: Cocaine, Marijuana General Adult EDM: Chief Complaint: ALCOHOL INTOXICATION HPI: HPI: 40-year-old male presents with alcohol intoxication. He states that his dad thought he was acting funny and should go to the emergency room. He was worried about excessive alcohol intoxication. Patient also tells me he feels "funny and maybe a little short of breath." He drank a pint of vodka and 2 natural light beers. He denies drug use. He has no other specific complaints. Review of Systems: Review of Systems: Constitutional: Denies fever or chills. Intoxication Eyes: Denies change in visual acuity HENT: Denies nasal congestion or sore throat Respiratory: shortness of breath Cardiovascular: Denies chest pain or edema GI: Denies abdominal pain, nausea, vomiting, bloody stools or diarrhea : Denies dysuria Musculoskeletal: Denies back pain or joint pain Integument: Denies rash Neurologic: Denies headache, focal weakness or sensory changes Endocrine: Denies polyuria or polydipsia Lymphatic: Denies swollen glands Psychiatric: Denies depression or anxiety Current Medications: Current Meds: Current Medications Medications (Trade) Dose Ordered Sig/Mally Start Time Stop Time Status Last Admin Dose Admin Folic Acid (Folic Acid) 1 mg ONCE ONCE 08/24/20 01:45 08/24/20 01:46 DC 08/24/20 01:49 1 MG Multivitamins/ Minerals (Infuvite Adult) 10 ml STK-MED ONCE 08/24/20 01:47 08/24/20 01:47 DC Multivitamins/ Minerals 10 ml/ Thiamine HCl 100 mg/Sodium Chloride 1,011.3 ml @ 1,000.187 mls/hr 1X ONCE 08/24/20 01:45 08/24/20 02:45 08/24/20 01:49 1,000.187 MLS/HR Thiamine HCl (Thiamine Vial) 200 mg STK-MED ONCE 08/24/20 01:47 08/24/20 01:47 DC Allergies: Allergies: Allergies Coded Allergies Type Severity Reaction Last Updated Verified No Known Drug Allergies 07/11/18 No Physical Exam: PE: Constitutional: Well developed, well nourished, no acute distress, intoxicated. [] HENT: Normocephalic, atraumatic, bilateral external ears normal, oropharynx moist, no oral exudates, nose normal. [] Eyes: PERRLA, EOMI, conjunctiva normal, no discharge. [] Neck: Normal range of motion, no tenderness, supple, no stridor. [] Cardiovascular: Heart rate regular rhythm, no murmur [] Lungs & Thorax: Bilateral breath sounds clear to auscultation [] Abdomen: Bowel sounds normal, soft, no tenderness, no masses, no pulsatile masses. [] Skin: Warm, dry, no erythema, no rash. [] Back: No tenderness, no CVA tenderness. [] Extremities: No tenderness, no cyanosis, no clubbing, ROM intact, no edema. [] Neurologic: Alert and oriented X 3, normal motor function, normal sensory function, no focal deficits noted. [] Psychologic: Affect normal, judgement normal, mood normal. [] EKG: EKG: [] Radiology/Procedures: Radiology/Procedures: [] Impressions: XR CHEST 1V History: Reason: SOB / Spl. Instructions: / History: Comparison: September 16, 2018 Findings: No consolidation or pleural effusion. Normal heart size. No pneumothorax. Impression: 1. No acute cardiopulmonary process. Electronically signed by: Marlin Prince DO (08/24/2020 2:10 AM) [facility] DICTATED AND SIGNED BY: MARLIN PRINCE DO DATE: 08/24/20 0209 CC: DARREL LEMUS DO; PCP,NO ~MTH0 0 Heart Score: C/O Chest Pain: N/A Risk Factors: Risk Factors: DM, Current or recent (<one month) smoker, HTN, HLP, family history of CAD, obesity. Risk Scores: Score 0 - 3: 2.5% MACE over next 6 weeks - Discharge Home Score 4 - 6: 20.3% MACE over next 6 weeks - Admit for Clinical Observation Score 7 - 10: 72.7% MACE over next 6 weeks - Early Invasive Strategies Course & Med Decision Making: Course & Med Decision Making Pertinent Labs and Imaging studies reviewed. (See chart for details) The patient's labs are unremarkable. His urinalysis is unremarkable. His chest x-ray is unremarkable. His drug screen is positive for alcohol and marijuana. I suspect these are responsible for the patient feeling altered. I do not see any medical reason for admission of the hospital. The patient is stable for discharge at this time. [] Dragon Disclaimer: Dragon Disclaimer: This electronic medical record was generated, in whole or in part, using a voice recognition dictation system. Departure Departure: Impression: Primary Impression: Alcohol intoxication Qualified Codes: F10.920 - Alcohol use, unspecified with intoxication, uncomplicated Additional Impression: Marijuana use Disposition: 01 HOME / SELF CARE / HOMELESS Condition: STABLE Referrals: PCP,NO (PCP) Patient Instructions: Alcohol Intoxication, [id number], Marijuana Abuse-Brief DARREL LEMUS DO Aug 24, 2020 01:52
[2020-08-24 01:56] LABS: BASO # 0.1 x10^3/uL (0.0-0.2); BASO % 1 % (0-3); EOS # 0.1 x10^3/uL (0.0-0.7); EOS % 2 % (0-3); HEMATOCRIT 43.9 % (39.0-53.0); HEMOGLOBIN 14.8 g/dL (13.0-17.5); LYMPH # 2.2 x10^3/uL (1.0-4.8); LYMPH % 40 % (24-48); MEAN CORPUSCULAR HEMOGLOBIN 31 pg (25-35); MEAN CORPUSCULAR HGB CONC 34 g/dL (31-37); MEAN CORPUSCULAR VOLUME 92 fL (79-100); MONO # 0.9 x10^3/uL (0.0-1.1); MONO % 16 % (0-9); NEUT # 2.3 x10^3uL (1.8-7.7); NEUT % 41 % (31-73); PLATELET COUNT 283 x10^3/uL (140-400); RED BLOOD COUNT 4.77 x10^6/uL (4.30-5.70); RED CELL DISTRIBUTION WIDTH 15.1 % (11.5-14.5); WHITE BLOOD COUNT 5.5 x10^3/uL (4.0-11.0)
[2020-08-24 02:02] LABS: CALCIUM 8.7 mg/dL (8.5-10.1); GFR 100.1; POTASSIUM 3.6 mmol/L (3.5-5.1)
[2020-08-24 02:06] LABS: BARBITURATES NEG (NEG); BENZODIAZEPINES NEG (NEG); CANNABINOIDS POS (NEG); COCAINE NEG (NEG); METHADONE NEG (NEG); OPIATES NEG (NEG); PHENCYCLIDINE NEG (NEG)
[2020-08-24 02:08] LABS: AMPHETAMINE/METHAMPHETAMINE NEG (NEG)
[2020-08-24 02:09] LABS: ALBUMIN 4.1 g/dL (3.4-5.0); ALBUMIN/GLOBULIN RATIO 1.2 (1.0-1.7); TOTAL BILIRUBIN 0.7 mg/dL (0.2-1.0); TOTAL PROTEIN 7.5 g/dL (6.4-8.2)
[2020-08-24 02:10] LABS: BACTERIA,URINE 0 /HPF (0-FEW); BILIRUBIN,URINE NEG (NEG); CLARITY,URINE CLEAR; COLOR,URINE YELLOW; GLUCOSE,URINE NEG (NEG); NITRITE,URINE NEG (NEG); RBC,URINE 0 /HPF (0-2); SQUAMOUS EPITHELIAL CELL,UR OCC /LPF; UROBILINOGEN,URINE 0.2 mg/dL (0.2 mg/dL); WBC,URINE RARE /HPF (0-4)
--- NOTE | 2020-08-24 02:12 | RAD ---
XR CHEST 1V History: Reason: SOB / Spl. Instructions: / History: Comparison: September 16, 2018 Findings: No consolidation or pleural effusion. Normal heart size. No pneumothorax. Impression: 1. No acute cardiopulmonary process. Electronically signed by: Hema Colorado DO (08/24/2020 2:10 AM) [facility]
[2020-08-24 02:52] VITALS: BP 121/65
== END 2020-08-24 02:55 | disposition home or self-care (01) ==
LOC: ER 01:27
DX: F10.129 Alcohol abuse with intoxication, unspecified (principal); F12.10 Cannabis abuse, uncomplicated; J44.9 Chronic obstructive pulmonary disease, unspecified; F17.210 Nicotine dependence, cigarettes, uncomplicated; F14.10 Cocaine abuse, uncomplicated; Y90.8 Blood alcohol level of 240 mg/100 ml or more
CPT/HCPCS: 36415; 71045; 80053; 80307; 81001; 85025; 96365; 99284; J7030

== ENCOUNTER 2020-08-24 22:58 | Emergency (ER) | payer SELFPAY ==
[~2020-08-24] VITALS: Ht 185.4 cm; Wt 74.0 kg
[2020-08-24 23:10] VITALS: BP 167/83
[2020-08-24] MEDS ORDERED: IV NORMAL SALINE 1,000ML 1,000 ML IV ONE (23:15)
--- NOTE | 2020-08-24 23:24 | PHYS DOC ---
Past History Past Medical History: Alcoholism, Anxiety, Asthma, Bronchitis, COPD Past Surgical History: No Surgical History Smoking: Cigarettes Alcohol Use: Heavy Drug Use: Cocaine, Marijuana General Adult EDM: Chief Complaint: MULTIPLE COMPLAINTS HPI: HPI: 40-year-old male presents with shortness of breath. The patient was just seen in this emergency room by myself yesterday for alcohol intoxication. He tells me he started feeling short of breath at 3 PM today. He denies any inciting event. He denies significant history of asthma or other lung problems. He denies chest pain or diaphoresis. He has no other complaints this time. Review of Systems: Review of Systems: Constitutional: Denies fever or chills Eyes: Denies change in visual acuity HENT: Denies nasal congestion or sore throat Respiratory: shortness of breath Cardiovascular: Denies chest pain or edema GI: Denies abdominal pain, nausea, vomiting, bloody stools or diarrhea : Denies dysuria Musculoskeletal: Denies back pain or joint pain Integument: Denies rash Neurologic: Denies headache, focal weakness or sensory changes Endocrine: Denies polyuria or polydipsia Lymphatic: Denies swollen glands Psychiatric: Denies depression or anxiety Current Medications: Current Meds: Current Medications Medications (Trade) Dose Ordered Sig/Mally Start Time Stop Time Status Last Admin Dose Admin Sodium Chloride 1,000 ml @ 1,000 mls/hr 1X ONCE 08/24/20 23:15 08/25/20 00:14 Allergies: Allergies: Allergies Coded Allergies Type Severity Reaction Last Updated Verified No Known Drug Allergies 07/11/18 No Physical Exam: PE: Constitutional: Well developed, well nourished, no acute distress, non-toxic appearance. [] HENT: Normocephalic, atraumatic, bilateral external ears normal, oropharynx moist, no oral exudates, nose normal. [] Eyes: PERRLA, EOMI, conjunctiva normal, no discharge. [] Neck: Normal range of motion, no tenderness, supple, no stridor. [] Cardiovascular: Heart rate 51, regular rhythm, no murmur [] Lungs & Thorax: Bilateral breath sounds clear to auscultation [] Abdomen: Bowel sounds normal, soft, no tenderness, no masses, no pulsatile masses. [] Skin: Warm, dry, no erythema, no rash. [] Back: No tenderness, no CVA tenderness. [] Extremities: No tenderness, no cyanosis, no clubbing, ROM intact, no edema. [] Neurologic: Alert and oriented X 3, normal motor function, normal sensory function, no focal deficits noted. [] Psychologic: Affect normal, judgement normal, mood normal. [] Current Patient Data: Vital Signs: Vital Signs Date Time Temp Pulse Resp B/P (MAP) Pulse Ox O2 Delivery O2 Flow Rate FiO2 08/24/20 23:10 98.2 57 16 167/83 (111) 100 Room Air EKG: EKG: [] Radiology/Procedures: Radiology/Procedures: [] Impressions: XR CHEST 1V History: Reason: SOB / Spl. Instructions: / History: Comparison: August 24, 2020 Findings: No consolidation or pleural effusion. Normal heart size. No pneumothorax. Impression: 1. No acute cardiopulmonary process. Electronically signed by: Hema Prince DO (08/24/2020 11:31 PM) [facility] DICTATED AND SIGNED BY: HEMA PRINCE DO DATE: 08/24/202330 CC: DARREL LEMUS DO; PCP,NO ~MTH0 0 Heart Score: C/O Chest Pain: N/A Risk Factors: Risk Factors: DM, Current or recent (<one month) smoker, HTN, HLP, family history of CAD, obesity. Risk Scores: Score 0 - 3: 2.5% MACE over next 6 weeks - Discharge Home Score 4 - 6: 20.3% MACE over next 6 weeks - Admit for Clinical Observation Score 7 - 10: 72.7% MACE over next 6 weeks - Early Invasive Strategies Course & Med Decision Making: Course & Med Decision Making Pertinent Labs and Imaging studies reviewed. (See chart for details) The patient's labs are unremarkable. His chest x-ray is unremarkable. I do not see anything that would warrant admission for the patient. He is stable for discharge at this time. [] Dragon Disclaimer: Dragon Disclaimer: This electronic medical record was generated, in whole or in part, using a voice recognition dictation system. Departure Departure: Impression: Primary Impression: Dyspnea Disposition: HOME / SELF CARE / HOMELESS Condition: STABLE Referrals: PCP,ARELIS (PCP) Patient Instructions: Shortness of Breath, [id number] DARREL LEMUS DO Aug 24, 2020 23:24
--- NOTE | 2020-08-24 23:30 | EKG ---
[address] [address] Test Date: 2020-08-24 Test Time: 23:12:05 Pat Name: NICK SOFIA Department: Room: Gender: M [employer] Clerk: : 1980 Requested By: DARREL LEMUS Order Number: [id number] Reading MD: Measurements Intervals [place] Rate: 51 P: 90 AL: 142 QRS: 6 QRSD: 82 T: 24 QT: 404 QTc: 378 Interpretive Statements SINUS RHYTHM OTHERWISE NORMAL ECG RI6.02 No previous ECG available for comparison
[2020-08-24 23:33] LABS: BASO # 0.1 x10^3/uL (0.0-0.2); BASO % 2 % (0-3); EOS # 0.1 x10^3/uL (0.0-0.7); EOS % 2 % (0-3); HEMATOCRIT 42.4 % (39.0-53.0); HEMOGLOBIN 14.1 g/dL (13.0-17.5); LYMPH # 1.2 x10^3/uL (1.0-4.8); LYMPH % 33 % (24-48); MEAN CORPUSCULAR HEMOGLOBIN 31 pg (25-35); MEAN CORPUSCULAR HGB CONC 33 g/dL (31-37); MEAN CORPUSCULAR VOLUME 92 fL (79-100); MONO # 0.5 x10^3/uL (0.0-1.1); MONO % 13 % (0-9); NEUT # 1.9 x10^3uL (1.8-7.7); NEUT % 51 % (31-73); PLATELET COUNT 235 x10^3/uL (140-400); RED BLOOD COUNT 4.63 x10^6/uL (4.30-5.70); RED CELL DISTRIBUTION WIDTH 15.1 % (11.5-14.5); WHITE BLOOD COUNT 3.7 x10^3/uL (4.0-11.0)
--- NOTE | 2020-08-24 23:34 | RAD ---
XR CHEST 1V History: Reason: SOB / Spl. Instructions: / History: Comparison: August 24, 2020 Findings: No consolidation or pleural effusion. Normal heart size. No pneumothorax. Impression: 1. No acute cardiopulmonary process. Electronically signed by: Hema Colorado DO (08/24/2020 11:31 PM) [facility]
[2020-08-24 23:42] LABS: CALCIUM 8.5 mg/dL (8.5-10.1); CREATININE 0.8 mg/dL (0.7-1.3); GFR 129.5; POTASSIUM 3.5 mmol/L (3.5-5.1)
[2020-08-24 23:48] LABS: ALBUMIN 3.9 g/dL (3.4-5.0); ALBUMIN/GLOBULIN RATIO 1.2 (1.0-1.7); TOTAL BILIRUBIN 0.6 mg/dL (0.2-1.0); TOTAL PROTEIN 7.1 g/dL (6.4-8.2)
== END 2020-08-25 00:38 | disposition home or self-care (01) ==
LOC: ER 22:58
DX: R06.02 Shortness of breath (principal); R06.00 Dyspnea, unspecified; J44.9 Chronic obstructive pulmonary disease, unspecified; F17.210 Nicotine dependence, cigarettes, uncomplicated; K21.9 Gastro-esophageal reflux disease without esophagitis; F12.10 Cannabis abuse, uncomplicated; F14.10 Cocaine abuse, uncomplicated
CPT/HCPCS: 36415; 71045; 80053; 84484; 85025; 93005; 96360; 99285; J7030

== ENCOUNTER 2020-08-26 07:59 | Emergency (ER) | payer SELFPAY ==
[~2020-08-26] VITALS: Ht 185.4 cm; Wt 74.0 kg
[2020-08-26 08:03] VITALS: BP 140/91
--- NOTE | 2020-08-26 08:21 | PHYS DOC ---
Past History Past Medical History: Alcoholism, Anxiety, Asthma, Bronchitis, COPD Past Surgical History: No Surgical History Smoking: Cigarettes Alcohol Use: Heavy Drug Use: Cocaine, Marijuana Adult General Chief Complaint Chief Complaint: SHORTNESS OF BREATH [facility] HPI Patient is a 40-year-old male initially reported shortness of breath but ultimately reports that he wants resources today. He is homeless, states he has fallen on hard times that has been exacerbated by COVID-19 pandemic. He has been at our ER facility numerous times in the past week, was at [facility] yesterday evening for similar complaints of shortness of breath and had extensive work-up. He ultimately was discharged and requested assistance with living as he has no electricity at his current place of residence, he was taxi back to [place] to a local penitentiary but reports he was denied entrance this morning. He is here, hungry, and wanting help with h ousing. Admits he continues to smoke cigarettes and marijuana, states he has been trying to cut back on alcohol use Review of Systems Review of Systems Fourteen body systems of review of systems have been reviewed. See HPI for pertinent positives and negative responses, other king all other systems are negative, non-pertinent or non-contributory Allergies Allergies Allergies Coded Allergies Type Severity Reaction Last Updated Verified No Known Drug Allergies 07/11/18 No Physical Exam Physical Exam Constitutional: Well developed, well nourished, no acute distress, non-toxic appearance. Smells of marijuana HENT: Normocephalic, atraumatic, bilateral external ears normal, oropharynx moist, no oral exudates, nose normal. Eyes: PERRLA, EOMI, conjunctiva normal, no discharge. Neck: Normal range of motion, no tenderness, supple, no stridor. Cardiovascular: Heart rate regular, sinus rhythm, no murmurs rubs or gallops Lungs & Thorax: Bilateral breath sounds clear to auscultation Abdomen: Bowel sounds normal, soft, no tenderness, no masses, no pulsatile masses. Nonsurgical abdomen, no peritoneal signs Skin: Warm, dry, no erythema, no rash. Back: No tenderness, no CVA tenderness. Extremities: No tenderness, no cyanosis, no clubbing, ROM intact, no edema. Neurologic: Alert and oriented X 3, grossly normal motor & sensory function, no focal deficits noted. Psychologic: Affect normal, judgement normal, mood normal. Current Patient Data Vital Signs Vital Signs Date Time Temp Pulse Resp B/P (MAP) Pulse Ox O2 Delivery O2 Flow Rate FiO2 08/26/20 08:03 50 18 140/91 (107) 99 Room Air EKG EKG [] Radiology/Procedures Radiology/Procedures [] Heart Score C/O Chest Pain: No Risk Factors: Risk Factors: DM, Current or recent (<one month) smoker, HTN, HLP, family history of CAD, obesity. Risk Scores: Risk Factors: DM, Current or recent (<one month) smoker, HTN, HLP, family history of CAD, obesity. Course & Med Decision Making Course & Med Decision Making Vitals stable, HPI and physical exam nonconcerning for patient who ultimately is here requesting social assistance. Patient given resources on local area such as homeless shelters and free clinics where he can seek care. I disclose there is no indication for further diagnostic work-up in ER setting and/or need for hospital admission. Strict return precautions were also discussed at length with good understanding by patient. Patient voiced understanding and agreement with the plan. Patient knows to come back for repeat evaluation if concerning signs or symptoms present prior to outpatient follow-up. Hemodynamically stable, ambulatory and well-appearing at time of disposition. Dragon Disclaimer Dragon Disclaimer This electronic medical record was generated, in whole or in part, using a voice recognition dictation system. Departure Departure: Impression: Primary Impression: Concerned about having social problem Disposition: 01 HOME / SELF CARE / HOMELESS Condition: STABLE Referrals: PCP,NO (PCP) Additional Instructions: As discussed prior to ER departure, please utilize resources given to you on departure to assist with establishing care with a local healthcare provider and also assisting with your quest to find housing etc. The local health department here in [place] is also a good resource you can contact regarding this. If any concerning signs or symptoms present prior to outpatient follow-up please do not hesitate to come back for repeat evaluation. Was a pleasure to take care of you and I wish you the best going forward JOSE GOULD DO Aug 26, 2020 08:21
== END 2020-08-26 09:07 | disposition home or self-care (01) ==
LOC: ER 07:59
DX: R06.02 Shortness of breath (principal); F17.210 Nicotine dependence, cigarettes, uncomplicated; F12.10 Cannabis abuse, uncomplicated; F14.10 Cocaine abuse, uncomplicated; Z59.0 Homelessness; Z60.9 Problem related to social environment, unspecified
CPT/HCPCS: 99281

== ENCOUNTER 2020-08-29 03:31 | Emergency (ER) | payer SELFPAY ==
[~2020-08-29] VITALS: Ht 185.4 cm; Wt 74.0 kg
[2020-08-29 03:35] VITALS: BP 137/100
--- NOTE | 2020-08-29 03:51 | PHYS DOC ---
Past History Past Medical History: Alcoholism, Anxiety, Asthma, Bronchitis, COPD Past Surgical History: No Surgical History Smoking: Cigarettes Alcohol Use: Heavy Drug Use: Cocaine, Marijuana Adult General Chief Complaint Chief Complaint: ALCOHOL INTOXICATION HPI HPI Patient is a 40-year-old male with a past medical history significant for alcohol abuse who presents with alcohol intoxication. States he thinks he drank too much hard liquor earlier and just wanted a place to sit down and rest. Denies any recent travel, traumas, illnesses, fevers, chest pain, shortness of breath, abdominal pain, nausea, vomiting. Denies any syncope or lightheadedness or dizziness. Denies any known ill contacts. Denies any other drug use. States he is hungry and thirsty and would like some to eat and drink. Review of Systems Review of Systems Review of systems otherwise unremarkable except noted in HPI Allergies Allergies Allergies Coded Allergies Type Severity Reaction Last Updated Verified No Known Drug Allergies 08/29/20 No Physical Exam Physical Exam Constitutional: Well developed, well nourished, no acute distress, non-toxic appearance. [] HENT: Normocephalic, atraumatic, bilateral external ears normal, oropharynx moist, no oral exudates, nose normal. [] Eyes: conjunctiva normal, no discharge. [] Neck: Normal range of motion, no tenderness, supple, no stridor. [] Cardiovascular:Heart rate regular rhythm, no murmur [] Lungs & Thorax: Bilateral breath sounds clear to auscultation [] Abdomen: Bowel sounds normal, soft, no tenderness, no masses, no pulsatile masses. [] Skin: Warm, dry, no erythema, no rash. [] Extremities: No tenderness, no cyanosis, no clubbing, ROM intact, no edema. [] Neurologic: Alert and oriented X 3, normal motor function, normal sensory function, able to sit stand and walk without issue no focal deficits noted. [] Psychologic: Affect normal, judgement normal, mood normal. [] Current Patient Data Vital Signs Vital Signs Date Time Temp Pulse Resp B/P (MAP) Pulse Ox O2 Delivery O2 Flow Rate FiO2 08/29/20 03:35 97.8 80 16 137/100 (112) 99 EKG EKG [] Radiology/Procedures Radiology/Procedures [] Heart Score C/O Chest Pain: No Risk Factors: Risk Factors: DM, Current or recent (<one month) smoker, HTN, HLP, family history of CAD, obesity. Risk Scores: Risk Factors: DM, Current or recent (<one month) smoker, HTN, HLP, family history of CAD, obesity. Course & Med Decision Making Course & Med Decision Making Patient is a 40-year-old male who presents stating he had too much alcohol to drink earlier and wanted a place to rest, and wanted some to eat and drink Vital signs not concerning. Physical exam noted above. Patient given soda and sneakers which he tolerated well. After some time in the emergency department patient stated he was feeling much better and was ready to be discharged. Advised to cease drinking alcohol on a regular basis and only drink and m oderation. Advised to follow-up with primary care physician when he can to update on ED visit and discuss alcohol issues. Given resources for local primary care physicians and free clinics. Gave return precautions to the ED. Patient grateful, verbalized understanding and agreed with plan of discharge. [] Dragon Disclaimer Dragon Disclaimer This electronic medical record was generated, in whole or in part, using a voice recognition dictation system. Departure Departure: Impression: Primary Impression: Alcohol intoxication Disposition: HOME / SELF CARE / HOMELESS Condition: GOOD Referrals: PCP,NO (PCP) DONTAE BREWER MD Patient Instructions: Alcohol Intoxication, Alcohol Problems Additional Instructions: Thank you for coming into the emergency department tonight allowing us to take care of you. As discussed you should probably cut back on your alcohol consumption and only drink in moderation as this could cause significant risks and health issues as discussed. You are given resources for local primary care physicians and free clinics. Please call your primary care physician or 1 at the number provided to establish care and set up follow-up visits to discuss [facility] health issues. Please come back to the emergency department immediately with new or concerning symptoms as discussed. BILL OLIVER MD Aug 29, 2020 03:51
== END 2020-08-29 04:05 | disposition home or self-care (01) ==
LOC: ER 03:31
DX: F10.229 Alcohol dependence with intoxication, unspecified (principal); F41.9 Anxiety disorder, unspecified; J44.9 Chronic obstructive pulmonary disease, unspecified; F17.210 Nicotine dependence, cigarettes, uncomplicated; Y90.9 Presence of alcohol in blood, level not specified
CPT/HCPCS: 99281

== ENCOUNTER 2020-08-31 18:17 | Emergency (ER) | payer SELFPAY ==
[~2020-08-31] VITALS: Ht 185.4 cm; Wt 74.0 kg
[2020-08-31] MEDS ORDERED: IOHEXOL 300 MG/ML 75 ML VIAL. IV ONE (18:30)
[2020-08-31] MEDS ORDERED: IV RINGERS SOLUTION,LACTATED 1,000 ML IV ONE (18:30)
[2020-08-31] MEDS ORDERED: ONDANSETRON PF 4 MG/2 ML VIAL. IVP ONE (18:30)
--- NOTE | 2020-08-31 18:46 | PHYS DOC ---
Past History Past Medical History: Alcoholism, Anxiety, Asthma, Bronchitis, COPD Past Surgical History: No Surgical History Smoking: Cigarettes Alcohol Use: Heavy Drug Use: Cocaine, Marijuana Adult General Chief Complaint Chief Complaint: SHORTNESS OF BREATH HPI HPI P patient is a 40-year-old male with a past medical history of COPD, anxiety, and alcoholism who presents with a chief complaint of epigastric abdominal discomfort and cramping with nausea and vomiting that started a couple hours before coming into the emergency department. States he thinks it may have been some old chicken that he ate that he had grilled and left outside since yesterday that he ate earlier in the day. Denies any recent traumas, travels, illnesses, fevers, chest pain, shortness of breath, dysuria, hematuria, blood in the stool or diarrhea. States it is cramping is approximately 6 out of 10 when having episodes of nausea and vomiting and 3 out of 10 otherwise with no radiation. Review of Systems Review of Systems Review of systems otherwise unremarkable except noted in HPI Current Medications Current Medications Current Medications Medications (Trade) Dose Ordered Sig/Mally Start Time Stop Time Status Last Admin Dose Admin Iohexol (Omnipaque 300 Mg/ml) 75 ml 1X ONCE 08/31/20 18:30 08/31/20 18:40 DC 08/31/20 18:42 75 ML Lactated Ringer's 1,000 ml @ 1,000 mls/hr 1X ONCE 08/31/20 18:30 08/31/20 19:29 Ondansetron HCl (Zofran) 4 mg 1X ONCE 08/31/20 18:30 08/31/20 18:40 DC Allergies Allergies Allergies Coded Allergies Type Severity Reaction Last Updated Verified No Known Drug Allergies 08/29/20 No Physical Exam Physical Exam Constitutional: Well developed, well nourished, no acute distress, non-toxic appearance. [] HENT: Normocephalic, atraumatic, bilateral external ears normal, oropharynx moist, no oral exudates, nose normal. [] Eyes: conjunctiva normal, no discharge. [] Neck: Normal range of motion, no tenderness, supple, no stridor. [] Cardiovascular: Sinus tachycardia Lungs & Thorax: Bilateral breath sounds clear to auscultation [] Abdomen: Bowel sounds hyperactive, soft, mild generalized tenderness most notable in epigastrium, no masses, no pulsatile masses. [] Skin: Warm, dry, no erythema, no rash. [] Back: No tenderness, no CVA tenderness. [] Extremities: No tenderness, no cyanosis, no clubbing, ROM intact, no edema. [] Neurologic: Alert and oriented X 3, no focal deficits noted. [] Psychologic: Affect normal, judgement normal, mood normal. [] Current Patient Data Vital Signs Vital Signs Date Time Temp Pulse Resp B/P (MAP) Pulse Ox O2 Delivery O2 Flow Rate FiO2 08/31/20 18:20 98.8 101 16 157/100 (119) 98 Room Air EKG EKG EKG with a rate of 88, QRS of 78, QTc of 400, no STEMI, noted sinus rhythm [] Radiology/Procedures Radiology/Procedures []CT scan of the abdomen and pelvis with contrast 06/26/2020 CLINICAL HISTORY: Low abdominal pain. Nausea and vomiting since yesterday. TECHNIQUE: After the intravenous administration of 75 cc of Omnipaque 300 only, contiguous, 5 mm axial sections were obtained through the abdomen and pelvis. One or more of the following individualized dose reduction techniques were utilized for this study: 1. Automated exposure control. 2. Adjustment of the mA and/or kV according to patient size. 3. Use of iterative reconstruction technique. FINDINGS: Images through the lung bases are within normal limits. The liver, spleen, pancreas, and adrenal glands are within normal limits. Rounded low-attenuation lesions are seen involving both kidneys. These measure 3 mm to 1 cm in size. These likely represent cysts. No further imaging evaluation is recommended. The abdominal aorta tapers normally. The gallbladder is contracted. No free fluid or free air is seen within the abdomen. The appendix is partially visualized and is within normal limits. Images through the pelvis demonstrate the urinary bladder to be contracted. Calcifications are seen within the pelvis consistent with phleboliths. Fluid is seen within the rectum and sigmoid colon. No inflammatory changes are seen adjacent fat. No free fluid is noted. Minimal S-shaped curvature of the thoracolumbar spine is seen. IMPRESSION: No acute abnormality is seen. Electronically signed by: Chidi Metzger MD (08/31/2020 7:20 PM) [id number] Heart Score C/O Chest Pain: No Risk Factors: Risk Factors: DM, Current or recent (<one month) smoker, HTN, HLP, family his tory of CAD, obesity. Risk Scores: Risk Factors: DM, Current or recent (<one month) smoker, HTN, HLP, family history of CAD, obesity. Course & Med Decision Making Course & Med Decision Making Patient is a 40-year-old male who presents with abdominal pain with nausea and vomiting for 2 hours Vital signs notable for tachycardia and hypertension. Physical exam noted above. Patient placed on the monitor with IV access established, IV fluids started, Zofran given for nausea and morphine for pain. Laboratory analysis not concerning. CT noted above with no acute abnormalities seen. Patient's symptoms improved significantly in the emergency department and requested something to eat and drink and was able to tolerate. Discussed all findings with patient and symptom control at home. Advised on switching him diet to something light and clear over the next couple of days to allow some bowel rest and staying hydrated. Advised to call primary care physician in the morning to update on ED visit. Gave strict return precautions to the ED. Gave prescription for Zofran. Patient grateful, verbalized understanding and agreed with plan of discharge. [] Dragon Disclaimer Dragon Disclaimer This electronic medical record was generated, in whole or in part, using a voice recognition dictation system. Departure Departure: Impression: Primary Impression: Abdominal cramping Additional Impression: Nausea & vomiting Disposition: 01 HOME / SELF CARE / HOMELESS Condition: GOOD Referrals: PCP,ARELIS (PCP) JAMAICA EMMANUEL MD Patient Instructions: Abdominal Pain (Nonspecific), Nausea and Vomiting Additional Instructions: Thank you for coming into the emergency department tonight and allowing us to take care of you. Please read the attached information very carefully. As discussed your laboratory analysis and the CT scan of your abdomen were reassuring. Your vital signs were also reassuring as was your exam. After some medications you stated that you were feeling better and ready to eat and drink and felt safe to discharge home. You are sent home with some nausea medicine. Please use it as prescribed and as needed. Over the next couple of days as discussed, please switch her diet to something light and clear to allow some bowel rest with foods as discussed. Please call your primary care physician first thing in the morning to set up a follow-up visit. Please come back to the ED with new or concerning symptoms as discussed. Scripts Ondansetron Hcl (ZOFRAN) 4 Mg Tablet 1 TAB PO PRN Q6HRS PRN for NAUSEA, #20 TAB Prov: BILL OLIVER MD 08/31/20 Problem Qualifiers BILL OLIVER MD Aug 31, 2020 18:46
[2020-08-31 18:50] LABS: BASO % 0 % (0-3); EOS % 0 % (0-3); HEMATOCRIT 51.4 % (39.0-53.0); HEMOGLOBIN 17.6 g/dL (13.0-17.5); LYMPH # 0.3 x10^3/uL (1.0-4.8); LYMPH % 4 % (24-48); MEAN CORPUSCULAR HEMOGLOBIN 31 pg (25-35); MEAN CORPUSCULAR HGB CONC 34 g/dL (31-37); MEAN CORPUSCULAR VOLUME 91 fL (79-100); MONO # 0.6 x10^3/uL (0.0-1.1); MONO % 8 % (0-9); NEUT # 6.4 x10^3uL (1.8-7.7); NEUT % 88 % (31-73); PLATELET COUNT 254 x10^3/uL (140-400); RED BLOOD COUNT 5.63 x10^6/uL (4.30-5.70); RED CELL DISTRIBUTION WIDTH 14.9 % (11.5-14.5); WHITE BLOOD COUNT 7.3 x10^3/uL (4.0-11.0)
[2020-08-31 19:00] LABS: CALCIUM 10.1 mg/dL (8.5-10.1); CREATININE 1.3 mg/dL (0.7-1.3); POTASSIUM 3.5 mmol/L (3.5-5.1)
[2020-08-31 19:07] LABS: ALBUMIN 4.5 g/dL (3.4-5.0); TOTAL BILIRUBIN 0.7 mg/dL (0.2-1.0); TOTAL PROTEIN 9.2 g/dL (6.4-8.2)
--- NOTE | 2020-08-31 19:23 | RAD ---
CT scan of the abdomen and pelvis with contrast 06/26/2020 CLINICAL HISTORY: Low abdominal pain. Nausea and vomiting since yesterday. TECHNIQUE: After the intravenous administration of 75 cc of Omnipaque 300 only, contiguous, 5 mm axia l sections were obtained through the abdomen and pelvis. One or more of the following individualized dose reduction techniques were utilized for this study: 1. Automated exposure control. 2. Adjustment of the mA and/or kV according to patient size. 3. Use of iterative reconstruction technique. FINDINGS: Images through the lung bases are within normal limits. The liver, spleen, pancreas, and adrenal glands are within normal limits. Rounded low-attenuation les ions are seen involving both kidneys. These measure 3 mm to 1 cm in size. These likely represent cyst s. No further imaging evaluation is recommended. The abdominal aorta tapers normally. The gallbladder is contracted. No free fluid or free air is seen within the abdomen. The appendix is partially visualized and is within normal limits. Images through the pelvis demonstrate the urinary bladder to be contracted. Calcifications are seen w ithin the pelvis consistent with phleboliths. Fluid is seen within the rectum and sigmoid colon. No i nflammatory changes are seen adjacent fat. No free fluid is noted. Minimal S-shaped curvature of the thoracolumbar spine is seen. IMPRESSION: No acute abnormality is seen. Electronically signed by: Chidi Metzger MD (08/31/2020 7:20 PM) [id number]
--- NOTE | 2020-08-31 19:49 | EKG ---
[address] [address] Test Date: 2020-08-31 Test Time: 19:02:40 Pat Name: NICK SOFIA Department: Room: Gender: M Clinical Research Scientist: LEON : 1980 Requested By: BILL OLIVER Order Number: [id number] Reading MD: Measurements Intervals [place] Rate: 88 P: 54 ME: 156 QRS: 77 QRSD: 78 T: 35 QT: 328 QTc: 400 Interpretive Statements SINUS RHYTHM OTHERWISE NORMAL ECG RI6.02 No previous ECG available for comparison
[2020-08-31] MEDS ORDERED: ONDA4TAB7 PO (20:11)
[2020-08-31 20:30] VITALS: BP 143/87
[2020-08-31 22:22] LABS: BILIRUBIN,URINE NEG (NEG); CLARITY,URINE CLEAR; COLOR,URINE YELLOW; GLUCOSE,URINE NEG (NEG)
[2020-08-31 22:27] LABS: NITRITE,URINE NEG (NEG); UROBILINOGEN,URINE 0.2 mg/dL (0.2 mg/dL)
[2020-08-31 22:28] LABS: BACTERIA,URINE 0 /HPF (0-FEW); SQUAMOUS EPITHELIAL CELL,UR FEW /LPF; WBC,URINE 0 /HPF (0-4)
== END 2020-08-31 20:30 | disposition home or self-care (01) ==
LOC: ER 18:17
DX: R10.30 Lower abdominal pain, unspecified (principal); R11.2 Nausea with vomiting, unspecified; J44.9 Chronic obstructive pulmonary disease, unspecified; F17.210 Nicotine dependence, cigarettes, uncomplicated; F12.10 Cannabis abuse, uncomplicated; F14.10 Cocaine abuse, uncomplicated
CPT/HCPCS: 36415; 74177; 80053; 81001; 83690; 84484; 85025; 93005; 96361; 96374; 99285; J2405; J7120; Q9967

== ENCOUNTER 2020-09-03 07:05 | Emergency (ER) | payer SELFPAY ==
[~2020-09-03] VITALS: Ht 177.8 cm; Wt 68.0 kg
[2020-09-03 07:05] VITALS: BP 152/90
[~2020-09-03 07:05] MED LIST changes: +ONDA4TAB7 PO
--- NOTE | 2020-09-03 07:27 | PHYS DOC ---
Past History Past Medical History: Alcoholism, Anxiety, Asthma, Bronchitis, COPD Past Surgical History: No Surgical History Smoking: Cigarettes Alcohol Use: Heavy Drug Use: Cocaine, Marijuana General Adult EDM: Chief Complaint: SHORTNESS OF BREATH HPI: HPI: 40-year-old male presents via EMS with shortness of breath. Patient tells me that he has had trouble sleeping in his apartment. The power is off. Is supposed to come back on tomorrow. He tells me that he goes outside for less than an hour and he feels very short of breath and fatigue. He admits that he has been using drugs and alcohol lately, but has been sober for 5 days. He tried to go to some hotel for "services" and they did not help him and would not call him ambulance. He walked to the [facility] and they called an ambulance. He admits that he has been seen multiple times at [place] and at this facility. His work-ups have been negative. He just wants his "life to get better." Review of Systems: Review of Systems: Constitutional: Fatigue. Denies fever or chills Eyes: Denies change in visual acuity HENT: Denies nasal congestion or sore throat Respiratory: shortness of breath Cardiovascular: Denies chest pain or edema GI: Denies abdominal pain, nausea, vomiting, bloody stools or diarrhea : Denies dysuria Musculoskeletal: Denies back pain or joint pain Integument: Denies rash Neurologic: Denies headache, focal weakness or sensory changes Endocrine: Denies polyuria or polydipsia Lymphatic: Denies swollen glands Psychiatric: Denies depression or anxiety Allergies: Allergies: Allergies Coded Allergies Type Severity Reaction Last Updated Verified No Known Drug Allergies 08/29/20 No Physical Exam: PE: Constitutional: Well developed, well nourished, no acute distress, non-toxic appearance. [] HENT: Normocephalic, atraumatic, bilateral external ears normal, oropharynx moist, no oral exudates, nose normal. [] Eyes: PERRLA, EOMI, conjunctiva normal, no discharge. [] Neck: Normal range of motion, no tenderness, supple, no stridor. [] Cardiovascular: Heart rate 68, regular rhythm, no murmur [] Lungs & Thorax: Bilateral breath sounds clear to auscultation [] Abdomen: Bowel sounds normal, soft, no tenderness, no masses, no pulsatile masses. [] Skin: Warm, dry, no erythema, no rash. [] Back: No tenderness, no CVA tenderness. [] Extremities: No tenderness, no cyanosis, no clubbing, ROM intact, no edema. [] Neurologic: Alert and oriented X 3, normal motor function, normal sensory function, no focal deficits noted. [] Psychologic: Affect normal, judgement normal, mood normal. [] EKG: EKG: [] Radiology/Procedures: Radiology/Procedures: [] Heart Score: C/O Chest Pain: N/A Risk Factors: Risk Factors: DM, Current or recent (<one month) smoker, HTN, HLP, family history of CAD, obesity. Risk Scores: Score 0 - 3: 2.5% MACE over next 6 weeks - Discharge Home Score 4 - 6: 20.3% MACE over next 6 weeks - Admit for Clinical Observation Score 7 - 10: 72.7% MACE over next 6 weeks - Early Invasive Strategies Course & Med Decision Making: Course & Med Decision Making Pertinent Labs and Imaging studies reviewed. (See chart for details) The patient's labs are unremarkable. His chest x-ray is unremarkable. The patient's had several evaluations in the last few days. None of them have shown any significant medical issues. The patient is stable for discharge at this time. [] Dragon Disclaimer: Dragsonido Disclaimer: This electronic medical record was generated, in whole or in part, using a voice recognition dictation system. Departure Departure: Impression: Primary Impression: Dyspnea Disposition: HOME / SELF CARE / HOMELESS Condition: STABLE Referrals: PCP,ARELIS (PCP) Patient Instructions: Shortness of Breath, [id number] DARREL LEMUS DO Sep 03, 2020 07:27
--- NOTE | 2020-09-03 07:43 | RAD ---
EXAM: AP View of the chest DATE: 09/03/2020 7:27 AM INDICATION: Reason: SOB / Spl. Instructions: / History: COMPARISON: No Prior FINDINGS: The heart is not enlarged. Mediastinal and hilar contours are normal. No focal parenchymal airspace opacity. No pleural effusion or pneumothorax. IMPRESSION: 1. No radiographic evidence for acute cardiopulmonary process. Electronically signed by: Rolando Reeder MD (09/03/2020 7:40 AM) VIDA
[2020-09-03 08:05] LABS: BASO % 1 % (0-3); EOS % 1 % (0-3); HEMOGLOBIN 17.2 g/dL (13.0-17.5); LYMPH # 0.8 x10^3/uL (1.0-4.8); LYMPH % 22 % (24-48); MEAN CORPUSCULAR HEMOGLOBIN 31 pg (25-35); MEAN CORPUSCULAR HGB CONC 35 g/dL (31-37); MEAN CORPUSCULAR VOLUME 89 fL (79-100); MONO # 1.1 x10^3/uL (0.0-1.1); MONO % 30 % (0-9); NEUT # 1.7 x10^3uL (1.8-7.7); NEUT % 47 % (31-73); PLATELET COUNT 241 x10^3/uL (140-400); RED BLOOD COUNT 5.52 x10^6/uL (4.30-5.70); RED CELL DISTRIBUTION WIDTH 14.4 % (11.5-14.5); WHITE BLOOD COUNT 3.5 x10^3/uL (4.0-11.0)
[2020-09-03 08:42] LABS: POTASSIUM ISTAT 3.4 mmol/L (3.5-5.0)
[2020-09-03 13:02] LABS: CALCIUM 9.3 mg/dL (8.5-10.1); CREATININE 0.9 mg/dL (0.7-1.3); GFR 113.1; POTASSIUM 3.4 mmol/L (3.5-5.1)
[2020-09-03 13:03] LABS: ALBUMIN 3.7 g/dL (3.4-5.0); ALBUMIN/GLOBULIN RATIO 0.9 (1.0-1.7); TOTAL BILIRUBIN 0.6 mg/dL (0.2-1.0)
== END 2020-09-03 09:12 | disposition home or self-care (01) ==
LOC: ER 07:05
DX: R06.02 Shortness of breath (principal); R53.83 Other fatigue; F10.20 Alcohol dependence, uncomplicated; F41.9 Anxiety disorder, unspecified; J44.9 Chronic obstructive pulmonary disease, unspecified; F17.210 Nicotine dependence, cigarettes, uncomplicated; Y90.9 Presence of alcohol in blood, level not specified
CPT/HCPCS: 36415; 71045; 80047; 80053; 84484; 85025; 99284

== ENCOUNTER 2020-09-29 08:38 | Emergency (ER) | payer SELFPAY ==
[~2020-09-29] VITALS: Ht 177.8 cm; Wt 102.2 kg
--- NOTE | 2020-09-29 09:06 | PHYS DOC ---
Past History Past Medical History: Alcoholism, Anxiety, Asthma, Bronchitis, COPD Past Surgical History: No Surgical History Smoking: Cigarettes Alcohol Use: Heavy Drug Use: Cocaine, Marijuana General Adult EDM: Chief Complaint: DIZZY/LIGHT HEADED HPI: HPI: Patient is a 40 year old male with history of COPD, tobacco use, alcoholism per chart review (patient denies any chronic medical problems) who presents with lightheadedness/dizziness. States that he was released from detention yesterday, and went to a court meeting this morning. His ride left him there, and he was walking home and went close. States that he started feeling dizzy on the walk home. [place] like he was spinning. Symptoms have now largely resolved. Denies any chest pain, shortness of breath, or headache. No weakness, numbness, or speech difficulty. No recent fevers or chills. He had 1 beer yesterday, denies any alcohol use today. Denies any recent drug use. Denies previously having similar symptoms. Review of Systems: Review of Systems: Constitutional: Denies fever or chills Eyes: Denies change in visual acuity HENT: Denies nasal congestion or sore throat Respiratory: Denies cough or shortness of breath Cardiovascular: Denies chest pain or edema GI: Denies abdominal pain, nausea, vomiting, bloody stools or diarrhea : Denies dysuria Musculoskeletal: Denies back pain or joint pain Integument: Denies rash Neurologic: + dizziness, Denies headache, speech difficulty, focal weakness or sensory changes Endocrine: Denies polyuria or polydipsia Lymphatic: Denies swollen glands Psychiatric: Denies depression or anxiety Family History: Family History: No pertinent family medical history Allergies: Allergies: Allergies Coded Allergies Type Severity Reaction Last Updated Verified No Known Drug Allergies 08/29/20 No Physical Exam: PE: Constitutional: Arrived with a close with Maria's bag in hand. Well developed, well nourished, no acute distress, non-toxic appearance. [] HENT: Normocephalic, atraumatic, bilateral external ears normal, oropharynx moist, no oral exudates, nose normal. [] Eyes: PERRLA, EOMI, conjunctiva normal, no discharge. [] Neck: Normal range of motion, no tenderness, supple, no stridor. [] Cardiovascular:Heart rate regular rhythm, no murmur [] Lungs & Thorax: Bilateral breath sounds clear to auscultation. No wheezes. Normal work of breathing [] Abdomen: Bowel sounds normal, soft, no tenderness, no masses, no pulsatile masses. [] Skin: Warm, dry, no erythema, no rash. [] Back: No tenderness, no CVA tenderness. [] Extremities: No tenderness, no cyanosis, no clubbing, ROM intact, no edema. [] Neurologic: Alert, oriented to person, place, time. Slightly slow to follow commands. Face is symmetric. Speech is normal. Cranial nerves III-XII intact. 5/5 strength in bilateral upper and lower extremities in all dermatomes. No dysmetria with [id number] or [id number] testing. Gait is stable. [] Psychologic: Affect normal, judgement normal, mood normal. [] EKG: EKG: [] Sinus rhythm. Rate 64. Normal axis. Normal intervals. Mild diffuse ST elevation. Most notable V2V6. no reciprocal depressions. Radiology/Procedures: Radiology/Procedures: [] Heart Score: C/O Chest Pain: No Risk Factors: Risk Factors: DM, Current or recent (<one month) smoker, HTN, HLP, family history of CAD, obesity. Risk Scores: Score 0 - 3: 2.5% MACE over next 6 weeks - Discharge Home Score 4 - 6: 20.3% MACE over next 6 weeks - Admit for Clinical Observation Score 7 - 10: 72.7% MACE over next 6 weeks - Early Invasive Strategies Course & Med Decision Making: Course & Med Decision Making Pertinent Labs and Imaging studies reviewed. (See chart for details) Patient is a 40-year-old male with history of alcohol abuse, tobacco use, COPD per chart review who presents with now resolved dizziness. On arrival is afebrile with reassuring vital signs. EKG showed normal sinus rhythm without evidence of arrhythmia. There was some mild ST elevations that were diffuse without reciprocal ST depressions. He denies any chest pain so I doubt this is ischemic in nature, but will check a single troponin to help further restratify. His lungs are clear to auscultation, no evidence of a COPD exacerbation. His neurologic examination is intact without any evidence of dysmetria. I doubt a posterior stroke. No recent trauma to suggest traumatic ICH. No headache to suggest spontaneous ICH. No risk factors for vertebral artery dissection. Do not feel that he requires any neuroimaging. No nystagmus on examination and symptoms are now resolved. We will check electrolytes, and cell counts, as well as above outlined troponin. If labs are reassuring and patient does well on reevaluation feel he will likely be safe for discharge. [] Dragon Disclaimer: Dragon Disclaimer: This electronic medical record was generated, in whole or in part, using a voice recognition dictation system. Departure Departure: Disposition: HOME / SELF CARE / HOMELESS Condition: IMPROVED Referrals: PCP,NO (PCP) Since you do not have a PCP, please call the number for the [facility] at [phone]. Additional Instructions: Your labs and examination were reassuring. Please call the phone number listed in your discharge packet to arrange for PCP follow-up. If you have a return of symptoms, new chest pain, new shortness of breath, or other new/concerning symptoms you can return to the emergency department for reevaluation at any time. SILVINA LEE MD Sep 29, 2020 09:06
[2020-09-29 09:23] LABS: BASO % 1 % (0-3); EOS # 0.1 x10^3/uL (0.0-0.7); EOS % 2 % (0-3); HEMATOCRIT 47.5 % (39.0-53.0); LYMPH # 1.5 x10^3/uL (1.0-4.8); LYMPH % 37 % (24-48); MEAN CORPUSCULAR HEMOGLOBIN 31 pg (25-35); MEAN CORPUSCULAR HGB CONC 34 g/dL (31-37); MEAN CORPUSCULAR VOLUME 93 fL (79-100); MONO # 0.6 x10^3/uL (0.0-1.1); MONO % 14 % (0-9); NEUT # 1.9 x10^3uL (1.8-7.7); NEUT % 47 % (31-73); PLATELET COUNT 203 x10^3/uL (140-400); RED BLOOD COUNT 5.14 x10^6/uL (4.30-5.70); RED CELL DISTRIBUTION WIDTH 15.2 % (11.5-14.5); WHITE BLOOD COUNT 4.1 x10^3/uL (4.0-11.0)
[2020-09-29 09:31] LABS: CALCIUM 9.4 mg/dL (8.5-10.1); CREATININE 0.8 mg/dL (0.7-1.3); GFR 129.5; POTASSIUM 3.7 mmol/L (3.5-5.1)
[2020-09-29 09:38] LABS: ALBUMIN 4.4 g/dL (3.4-5.0); ALBUMIN/GLOBULIN RATIO 1.5 (1.0-1.7); TOTAL BILIRUBIN 0.7 mg/dL (0.2-1.0); TOTAL PROTEIN 7.3 g/dL (6.4-8.2)
[2020-09-29 10:36] VITALS: BP 139/84
--- NOTE | 2020-09-29 11:34 | EKG ---
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
== END 2020-09-29 10:36 | disposition home or self-care (01) ==
LOC: ER 08:38
DX: R42 Dizziness and giddiness (principal); F41.9 Anxiety disorder, unspecified; J44.9 Chronic obstructive pulmonary disease, unspecified; F17.210 Nicotine dependence, cigarettes, uncomplicated; F10.20 Alcohol dependence, uncomplicated; Y90.9 Presence of alcohol in blood, level not specified
CPT/HCPCS: 36415; 80053; 84484; 85025; 93005; 99284

== ENCOUNTER 2020-10-04 15:37 | Emergency (ER) | payer SELFPAY ==
[~2020-10-04] VITALS: Ht 177.8 cm; Wt 102.2 kg
[2020-10-04 15:45] VITALS: BP 139/84
--- NOTE | 2020-10-04 17:53 | PHYS DOC ---
Past History Past Medical History: Alcoholism, Anxiety, Asthma, Bronchitis, COPD Past Surgical History: No Surgical History Smoking: Cigarettes Alcohol Use: Heavy Drug Use: Cocaine, Marijuana General Adult EDM: Chief Complaint: ABSCESS HPI: HPI: 40-year-old male with multiple medical conditions, presents the ED with complaints of painless lesion on the back of his head. Reports has been there for months and is asking if it can be removed. Denies any trauma to the head. No associated rash, increased warmth or purulent drainage from lesion. States "is it a shaving problem?" Review of Systems: Review of Systems: Constitutional: Denies fever or chills Eyes: Denies change in visual acuity HENT: Denies nasal congestion or sore throat Respiratory: Denies cough or shortness of breath Cardiovascular: Denies chest pain or edema GI: Denies nausea, vomiting, Musculoskeletal: Denies back pain or joint pain Integument: Denies rash or diaphoresis Neurologic: Denies headache, or neck stiffness Psychiatric: Denies depression or anxiety Allergies: Allergies: Allergies Coded Allergies Type Severity Reaction Last Updated Verified No Known Drug Allergies 09/29/20 No Physical Exam: PE: Constitutional: Well developed, well nourished, no acute distress, non-toxic appearance. HENT: Normocephalic, atraumatic, 2.5x2.5 raised/nonfluctuant/nontender lesion over base of occiput-no skin break, no erythema or increased warmth to this lesion Eyes: EOMI, conjunctiva normal, no discharge. Neck: Normal range of motion, supple, no midline pain Cardiovascular: S1/2 present, regular rhythm Lungs & Thorax: Speaking in full sentences, bilateral equal chest rise, no tachypnea or increased work of breathing Skin: Warm, dry, no erythema, no rash. [] Extremities: No tenderness, no cyanosis, Neurologic: Alert and oriented X 3, no focal deficits noted, steady gait Psychologic: Affect normal, mood normal. [] Current Patient Data: Vital Signs: Vital Signs Date Time Temp Pulse Resp B/P (MAP) Pulse Ox O2 Delivery O2 Flow Rate FiO2 10/04/20 15:45 98.9 82 16 139/84 98 Room Air EKG: EKG: [] Radiology/Procedures: Radiology/Procedures: [] Heart Score: C/O Chest Pain: No Risk Factors: Risk Factors: DM, Current or recent (<one month) smoker, HTN, HLP, family history of CAD, obesity. Risk Scores: Score 0 - 3: 2.5% MACE over next 6 weeks - Discharge Home Score 4 - 6: 20.3% MACE over next 6 weeks - Admit for Clinical Observation Score 7 - 10: 72.7% MACE over next 6 weeks - Early Invasive Strategies Course & Med Decision Making: Course & Med Decision Making Pertinent Labs and Imaging studies reviewed. (See chart for details) Exam is consistent with a sebaceous cyst that does not appear to be infected. No indication for antibiotics. Will discharge home with strict ED return precautions were given for associated redness, increased warmth, purulent drainage or pain. Encouraged urgent outpatient follow-up with PMD for routine care, will refer to surgery or dermatology to discuss removal. Life-threatening processes were considered but are low suspicion at this time, given history, physical exam and ED workup. Pt was educated on all prescription medications and adverse effects. All patient's questions were answered and pt was stable at time of discharge. Life/limb-threatening differential includes but is not limited to, rash/cellulitis, traumatic injury, infection/sepsis, meningitis or encephalitis. I have spoken with the patient and/or caregivers. I explained the patient's condition, diagnoses and treatment plan based on the information available to me at this time. I have answered the patient and/or caregiver's questions and addressed any concerns. The patient and/or caregivers have a good understanding of patient's diagnosis, condition and treatment plan as can be expected at this point. Vital signs have been stable. Patient's condition is stable and appropriate for discharge from the emergency department. Patient will pursue further outpatient evaluation with primary care physician or other designated or consulting physician as outlined in the discharge instructions. The patient and/or caregivers are agreeable to this plan of care and follow-up instructions have been explained in detail. The patient and/or caregivers have received these instructions in written form and have expressed an understanding of the discharge instructions. The patient and/or caregivers are aware that any significant change of condition or worsening of symptoms should prompt immediate return to this or the closest emergency department or call to 911. Tin Disclaimer: Tin Disclaimer: This electronic medical record was generated, in whole or in part, using a voice recognition dictation system. Departure Departure: Impression: Primary Impression: Sebaceous cyst Disposition: LEFT AWOL/ELOPED Condition: STABLE Referrals: PCP,NO (PCP) [facility]-Dr. Grant or Dr. Tracy [facility] [address] [place] [address], [address] [place], [place] [id number] Patient Instructions: Cyst Removal Additional Instructions: Dermatology: [place] [address] [facility], [place] [address] OR FOLLOW UP WITH SURGERY: FOR DEFINITIVE MANAGEMENT [facility] General Surgery Address: [address] [facility], [facility] [address] [place] [address] EMERGENCY DEPARTMENT GENERAL DISCHARGE INSTRUCTIONS Thank you for coming to [facility] (ED) today and trusting us with you care. We trust that you had a positivie experience in our Emergency Department. If you wish to speak to the department management, you may call the director at [phone]. YOUR FOLLOW UP INSTRUCTIONS ARE FOLLOWS: 1. Do you have a private Doctor? If you do not have a private doctor, please ask for a resource list of physicians or clinics that may be able to assist you with follow up care. ADDITIONAL INSTRUCTIONS AND INFORMATION: 1. Your care today has been supervised by a physician who is specially trained in emergency care. Many problems require more than one evaluation for a complete diagnosis and treatment. We recommend that you schedule your follow up appointment as recommended to ensure complete treatment of you illness or injury. If you are unable to obtain follow up care and continue to have a problem, or if your condition worsens, we recommend that you return to the ED. 2. We are not able to safely determine your condition over the phone nor are we able to give sound medical advice over the phone. For these safety reasons, if you call for medical advice we will ask you to come to the ED for further evaluation. 3. If you have any questions regarding these discharge instructions please call the ED at [phone]. SAFETY INFORMATION: In the interest of safety, wellness, and injury prevention; we encourage you to wear your sealbelt, if you smoke; quite smoking, and we encourage family to use a protective helmet for bicycling and other sporting events that present an increased risk for head injury. IF YOUR SYMPTOMS WORSEN OR NEW SYMPTOMS DEVELOP, OR YOU HAVE CONCERNS ABOUT YOUR CONDITION; OR IF YOUR CONDITION WORSENS WHILE YOU ARE WAITING FOR YOUR FOLLOW UP APPOINTMENT; EITHER CONTACT YOUR PRIMARY CARE DOCTOR, THE PHYSICIAN WHOSE NAME AND NUMBER YOU WERE GIVEN, OR RETURN TO THE ED IMMEDIATELY. [facility] DO Oct 04, 2020 17:53
== END 2020-10-04 18:00 | disposition left against medical advice (07) ==
LOC: ER 15:57
DX: L72.3 Sebaceous cyst (principal); J44.9 Chronic obstructive pulmonary disease, unspecified; F41.9 Anxiety disorder, unspecified; F17.210 Nicotine dependence, cigarettes, uncomplicated; F10.20 Alcohol dependence, uncomplicated; Y90.9 Presence of alcohol in blood, level not specified
CPT/HCPCS: 99281

== ENCOUNTER 2021-01-12 04:12 | Emergency (ER) | payer SELFPAY ==
[~2021-01-12] VITALS: Ht 177.8 cm; Wt 77.5 kg
--- NOTE | 2021-01-12 04:20 | PHYS DOC ---
Past History Past Medical History: Alcoholism, Anxiety, Asthma, Bronchitis, COPD Past Surgical History: No Surgical History Smoking: Cigarettes Alcohol Use: Heavy Drug Use: Cocaine, Marijuana General Adult HPI: HPI: ".I vomited.. and I noticed a few specks of blood in it.. and when I wipe I seen some blood on the tissue paper..." " I dont want any labs.. and no exam.. " " I just need a place to sleep and rest up..." Patient is a 40 year old male who presents with above hx and complaints of vomiting a few specks of blood and when he defecated he noticed some few specks of blood on the toilet paper. Patient however declined physical exam and declined lab work. Encourage patient to monitor his bleeding and avoid con stipation. Encouraged to follow-up with primary care. Advised patient to return anytime he wished labs or to complete his exam. Advised patient avoid illicit drugs. Review of Systems: Review of Systems: Constitutional: Denies fever or chills Eyes: Denies change in visual acuity HENT: Denies nasal congestion or sore throat Respiratory: Denies cough or shortness of breath Cardiovascular: Denies chest pain or edema GI: Denies abdominal pain, nausea, vomiting, bloody stools or diarrhea. Has complaints of blood specks and stool and and vomiting after using cocaine : Denies dysuria Musculoskeletal: Denies back pain or joint pain Integument: Denies rash Neurologic: Denies headache, focal weakness or sensory changes Endocrine: Denies polyuria or polydipsia Lymphatic: Denies swollen glands Psychiatric: Denies depression or anxiety Family History: Family History: Noncontributory Allergies: Allergies: Allergies Coded Allergies Type Severity Reaction Last Updated Verified No Known Drug Allergies 09/29/20 No Physical Exam: PE: Constitutional: no acute distress, non-toxic appearance. Strong smell of alcoholic beverages and marijuana HENT: Normocephalic, atraumatic, bilateral external ears normal, oropharynx moist, no oral exudates, nose normal. [] Eyes: PERRLA, EOMI, conjunctiva normal, no discharge. [] Neck: Normal range of motion, no tenderness, supple, no stridor. [] Cardiovascular:Heart rate regular rhythm, no murmur [] Lungs & Thorax: Bilateral breath sounds clear to auscultation [] Abdomen: Bowel sounds normal, soft, no tenderness, no masses, no pulsatile masses. [] Skin: Warm, dry, no erythema, no rash. [] Back: No tenderness, no CVA tenderness. [] Extremities: No tenderness, no cyanosis, no clubbing, ROM intact, no edema. [] Neurologic: Alert and oriented X 3, normal motor function, normal sensory function, no focal deficits noted. [] Psychologic: Affect normal, judgement normal, mood normal. [] Current Patient Data: Labs: See nursing for home meds EKG: EKG: Refused exam [] Radiology/Procedures: Radiology/Procedures: Refuses labs or x-rays [] Heart Score: C/O Chest Pain: N/A Risk Factors: Risk Factors: DM, Current or recent (<one month) smoker, HTN, HLP, family history of CAD, obesity. Risk Scores: Score 0 - 3: 2.5% MACE over next 6 weeks - Discharge Home Score 4 - 6: 20.3% MACE over next 6 weeks - Admit for Clinical Observation Score 7 - 10: 72.7% MACE over next 6 weeks - Early Invasive Strategies Course & Med Decision Making: Course & Med Decision Making Pertinent Labs and Imaging studies reviewed. (See chart for details) Advised patient to monitor rectal bleeding and vomiting. Advised patient avoid illicit drugs. Advised patient avoid constipation. Advised patient to return if he elected to have labs or exam. Impression : 1. History of GI bleeding -described as specks nonsignificant [] Dragon Disclaimer: Dragon Disclaimer: This electronic medical record was generated, in whole or in part, using a voice recognition dictation system. Departure Departure: Referrals: PCP,NO (PCP) Tin Disclaimer This chart was dictated in whole or in part using Voice Recognition software in a busy, high-work load, and often noisy Emergency Department environment. It may contain unintended and wholly unrecognized errors or omissions. ANN-MARIE ROSE MD Jan 12, 2021 04:20
[2021-01-12 04:27] VITALS: BP 124/92
== END 2021-01-12 06:14 | disposition home or self-care (01) ==
LOC: ER 04:12
DX: R11.10 Vomiting, unspecified (principal); J44.9 Chronic obstructive pulmonary disease, unspecified; F17.210 Nicotine dependence, cigarettes, uncomplicated; F12.10 Cannabis abuse, uncomplicated; F14.10 Cocaine abuse, uncomplicated
CPT/HCPCS: 99281

== ENCOUNTER 2021-01-16 01:47 | Emergency (ER) | payer SELFPAY ==
[~2021-01-16] VITALS: Ht 177.8 cm; Wt 77.5 kg
--- NOTE | 2021-01-16 01:51 | PHYS DOC ---
Past History Past Medical History: Alcoholism, Anxiety, Asthma, Bronchitis, COPD Past Surgical History: No Surgical History Smoking: Cigarettes Alcohol Use: Heavy Drug Use: Cocaine, Marijuana General Adult HPI: HPI: "..I got blisters on my feet... "... or close to getting them on these toes in my Rt. foot.. " ( planter side of toes 2,3) Patient is a 40 year old MALE who presents with above hx and complaints bisters on his feet. Pt. is know for frequent ED visits, polysubstance abuse and malingering. Does have a past medical history of alcoholism, anxiety, asthma, bronchitis, COPD and continued tobacco use. Patient admits to heavy drinking today. Patient wearing very dirty tennis shoes and socks. No form blisters as yet. Does have findings of possible plantar wart development on left foot. On right foot no definitive blisters have formed. Review of Systems: Review of Systems: Constitutional: Denies fever or chills Eyes: Denies change in visual acuity HENT: Denies nasal congestion or sore throat Respiratory: Denies cough or shortness of breath Cardiovascular: Denies chest pain or edema GI: Denies abdominal pain, nausea, vomiting, bloody stools or diarrhea : Denies dysuria Musculoskeletal: Denies back pain or joint pain Integument: Denies rash . Complaints of blisters developing on Rt. foot. Neurologic: Denies headache, focal weakness or sensory changes Endocrine: Denies polyuria or polydipsia Lymphatic: Denies swollen glands Psychiatric: Denies depression or anxiety Family History: Family History: Noncontributory to presentation Current Medications: Current Meds: See nursing for home meds Allergies: Allergies: Allergies Coded Allergies Type Severity Reaction Last Updated Verified No Known Drug Allergies 01/12/21 No Physical Exam: PE: Constitutional: , no acute distress, smells of intoxicants ridges and appearance intoxication. HENT: Normocephalic, atraumatic, bilateral external ears normal, oropharynx moist, no oral exudates, nose normal. [] Eyes: PERRLA, EOMI, conjunctiva normal, no discharge. [] Neck: Normal range of motion, no tenderness, supple, no stridor. [] Cardiovascular:Heart rate regular rhythm, no murmur [] Lungs & Thorax: Bilateral breath sounds to apex with few scattered wheezes on auscultation [] Abdomen: Bowel sounds normal, soft, no tenderness, no masses, no pulsatile masses. [] Skin: Warm, dry, no erythema, no rash. Redness on toes 2 and 3 right foot. Oncotic nails. Back: No tenderness, no CVA tenderness. [] Extremities: No tenderness, no cyanosis, no clubbing, ROM intact, no edema. [] Neurologic: Alert and oriented X 3, normal motor function, normal sensory function, no focal deficits noted. [] Slightly wide gait. Psychologic: Affect anxious l, judgement normal, mood normal. [] EKG: EKG: [] Radiology/Procedures: Radiology/Procedures: [] Heart Score: C/O Chest Pain: N/A Risk Factors: Risk Factors: DM, Current or recent (<one month) smoker, HTN, HLP, family history of CAD, obesity. Risk Scores: Score 0 - 3: 2.5% MACE over next 6 weeks - Discharge Home Score 4 - 6: 20.3% MACE over next 6 weeks - Admit for Clinical Observation Score 7 - 10: 72.7% MACE over next 6 weeks - Early Invasive Strategies Course & Med Decision Making: Course & Med Decision Making Pertinent Labs and Imaging studies reviewed. (See chart for details) Patient wash feet twice a day. Patient to wear dry socks. Patient consider using his alcoholic beverage on areas that are tender as a disinfectant. Encourage patient to reduce his alcohol intake. Patient follow-up primary care. Patient return if any concerns. Consider following up at [facility] for additional socks and footwear. Impression: 1. Possible early -developed mean blisters on toes is 2 and 3 right foot. 2. Alcohol abuse 3. Hx Polysubstance Abuse [] Dragon Disclaimer: Dragon Disclaimer: This electronic medical record was generated, in whole or in part, using a voice recognition dictation system. Departure Departure: Referrals: PCP,ARELIS (PCP) Tamiaon Disclaimer This chart was dictated in whole or in part using Voice Recognition software in a busy, high-work load, and often noisy Emergency Department environment. It may contain unintended and wholly unrecognized errors or omissions. Dragon Disclaimer This chart was dictated in whole or in part using Voice Recognition software in a busy, high-work load, and often noisy Emergency Department environment. It may contain unintended and wholly unrecognized errors or omissions. Dragon Disclaimer This chart was dictated in whole or in part using Voice Recognition software in a busy, high-work load, and often noisy Emergency Department environment. It may contain unintended and wholly unrecognized errors or omissions. ANN-MARIE ROSE MD Jan 16, 2021 01:51
[2021-01-16 02:00] VITALS: BP 140/100
== END 2021-01-16 02:27 | disposition home or self-care (01) ==
LOC: ER 01:47
DX: S90.821A Blister (nonthermal), right foot, initial encounter (principal); F10.20 Alcohol dependence, uncomplicated; Y90.9 Presence of alcohol in blood, level not specified; F41.9 Anxiety disorder, unspecified; J45.909 Unspecified asthma, uncomplicated; J44.9 Chronic obstructive pulmonary disease, unspecified; F17.210 Nicotine dependence, cigarettes, uncomplicated; X58.XXXA Exposure to other specified factors, initial encounter; Y93.89 Activity, other specified; Y92.89 Other specified places as the place of occurrence of the external cause; Y99.8 Other external cause status
CPT/HCPCS: 99281

== ENCOUNTER 2021-05-31 10:08 | Emergency (ER) | payer SELFPAY ==
[~2021-05-31] VITALS: Ht 177.8 cm; Wt 68.0 kg
--- NOTE | 2021-05-31 10:44 | PHYS DOC ---
Past History Past Medical History: Alcoholism, Anxiety, Asthma, Bronchitis, COPD (TANYA MENSAH) Past Surgical History: No Surgical History (TANYA MENSAH) Smoking: Cigarettes Alcohol Use: Heavy Drug Use: Cocaine, Marijuana (TANYA MENSAH) General Adult EDM: Chief Complaint: SKIN RASH/ABSCESS HPI: HPI: Patient is a 40 year old male who presents with a hard "lump" on the back of his scalp. Patient states he had nicked himself with clippers a couple months ago, and the bump slowly grew since then. He states he feels the bump is somewhat smaller than it was last week. Patient's main concern is how the bump looks and that it can be uncomfortable when pressure is on the back of his head, such as laying down. Patient denies pain, drainage, warmth, headache, paresthesias, vision changes. (TANYA MENSAH) Review of Systems: Review of Systems: ROS negative or noncontributory except as mentioned in HPI. (TANYA MENSAH) Allergies: Allergies: Allergies Coded Allergies Type Severity Reaction Last Updated Verified No Known Drug Allergies 05/31/21 No (TANYA MENSAH) Physical Exam: PE: Constitutional: Well developed, well nourished, no acute distress, non-toxic appearance. HENT: Normocephalic, atraumatic, bilateral external ears without deformity or discharge, oropharynx moist, no oral exudates, nose without deformity or discharge. Eyes: EOMI, conjunctiva normal, no discharge. [] Neck: Normal range of motion, no tenderness, supple, no stridor. [] Skin: Warm, dry, no erythema, no rash. [] Extremities: No tenderness, no cyanosis, no clubbing, ROM intact, no edema. [] Neurologic: Alert and oriented x4, normal motor function, normal sensory function, no focal deficits noted. (TANYA MENSAH) Current Patient Data: Vital Signs: Vital Signs Date Time Temp Pulse Resp B/P (MAP) Pulse Ox O2 Delivery O2 Flow Rate FiO2 05/31/21 10:54 77 18 136/97 (110) 98 Room Air 05/31/21 10:25 98.2 72 18 141/100 (114) 98 Room Air (TANYA MENSAH) Heart Score: C/O Chest Pain: No (TANYA MENSAH) Course & Med Decision Making: Course & Med Decision Making Pertinent Labs and Imaging studies reviewed. (See chart for details) Patient is a 40-year-old male who presents with what appears to be a cyst on his occipital scalp. There is no evidence of infection. Patient will be given dermatology referral to follow-up. All patient's questions were answered. He understands and is agreeable to discharge plan. (TANYA MENSAH) Course & Med Decision Making Patients Care and treatment plan provided by RENÉ DON. I was available for consult. Patient's chart reviewed. (YANETH ANDRADE DO) Dragon Disclaimer: Dragon Disclaimer: This electronic medical record was generated, in whole or in part, using a voice recognition dictation system. (TANYA MENSAH) Departure Departure: Impression: Primary Impression: Scalp cyst Additional Impression: Elevated blood pressure reading Disposition: HOME / SELF CARE / HOMELESS Condition: STABLE Referrals: PCP,NO (PCP) Patient Instructions: Cyst Removal Additional Instructions: [facility] Yaneth Chandra PA-C [address] [place] [id number] Hours: Friday - Friday 8:00 am - 5:00 pm EMERGENCY DEPARTMENT GENERAL DISCHARGE INSTRUCTIONS Thank you for coming to [facility] (ED) today and trusting us with you care. We trust that you had a positive experience in our Emergency Department. If you wish to speak to the department management, you may call the director at [phone]. YOUR FOLLOW UP INSTRUCTIONS ARE FOLLOWS: 1. Follow up with your primary care doctor. If you do not have a primary doctor, please ask for a resource list of physicians or clinics that may be able to assist you with follow up care. 2. The emergency provider has interpreted your imaging studies, if any were ordered. The radiology rehabilitation specialist also reviewed them. If there is a change in the findings, you will be notified in 48 hours when at all possible. 3. If a lab test or culture has been done, your results will be reviewed and you will be notified if you need a change in treatment. 4. Follow instructions verbalized to you and refer to the printouts if needed. ADDITIONAL INSTRUCTIONS AND INFORMATION: 1. Your care today has been supervised by a physician who is specially trained in emergency care. Many problems require more than one evaluation for a complete diagnosis and treatment. We recommend that you schedule your follow up appointment as recommended to ensure complete treatment of you illness or injury. If you are unable to obtain follow up care and continue to have a problem, or if your condition worsens, we recommend that you return to the ED. 2. We are not able to safely determine your condition over the phone nor are we able to give sound medical advice over the phone. For these safety reasons, if you call for medical advice we will ask you to come to the ED for further evaluation. 3. If you have any questions regarding these discharge instructions please call the ED at [phone]. SAFETY INFORMATION: In the interest of safety, wellness, and injury prevention; we encourage you to wear your seat belt, if you smoke; quite smoking, and we encourage family to use a protective helmet for bicycling and other sporting events that present an increased risk for head injury. IF YOUR SYMPTOMS WORSEN OR NEW SYMPTOMS DEVELOP, OR YOU HAVE CONCERNS ABOUT YOUR CONDITION; OR IF YOUR CONDITION WORSENS WHILE YOU ARE WAITING FOR YOUR FOLLOW UP APPOINTMENT; EITHER CONTACT YOUR PRIMARY CARE DOCTOR, THE PHYSICIAN WHOSE NAME AND NUMBER YOU WERE GIVEN, OR RETURN TO THE ED IMMEDIATELY. TANYA MENSAH May 31, 2021 10:44 YANETH ANDRADE DO Jun 06, 2021 00:52
[2021-05-31 10:54] VITALS: BP 136/97
== END 2021-05-31 10:54 | disposition home or self-care (01) ==
LOC: ER 10:08
DX: L72.8 Other follicular cysts of the skin and subcutaneous tissue (principal); R03.0 Elevated blood-pressure reading, without diagnosis of hypertension; F10.20 Alcohol dependence, uncomplicated; F41.9 Anxiety disorder, unspecified; J44.9 Chronic obstructive pulmonary disease, unspecified; F17.210 Nicotine dependence, cigarettes, uncomplicated; Y90.9 Presence of alcohol in blood, level not specified
CPT/HCPCS: 99281

== ENCOUNTER 2021-07-19 09:36 | Emergency (ER) | payer SELFPAY ==
[~2021-07-19] VITALS: Ht 177.8 cm; Wt 76.8 kg
[2021-07-19] MEDS ORDERED: IV NORMAL SALINE 1,000ML 1,000 ML IV ONE (10:00)
[2021-07-19 10:13] LABS: BASO % 1 % (0-3); EOS # 0.1 x10^3/uL (0.0-0.7); EOS % 3 % (0-3); HEMATOCRIT 46.5 % (39.0-53.0); HEMOGLOBIN 15.6 g/dL (13.0-17.5); LYMPH % 29 % (24-48); MEAN CORPUSCULAR HEMOGLOBIN 31 pg (25-35); MEAN CORPUSCULAR HGB CONC 34 g/dL (31-37); MEAN CORPUSCULAR VOLUME 91 fL (79-100); MONO # 0.3 x10^3/uL (0.0-1.1); MONO % 8 % (0-9); NEUT # 2.1 x10^3uL (1.8-7.7); NEUT % 60 % (31-73); PLATELET COUNT 250 x10^3/uL (140-400); RED BLOOD COUNT 5.11 x10^6/uL (4.30-5.70); RED CELL DISTRIBUTION WIDTH 15.2 % (11.5-14.5); WHITE BLOOD COUNT 3.6 x10^3/uL (4.0-11.0)
[2021-07-19 10:31] LABS: CALCIUM 9.6 mg/dL (8.5-10.1); CREATININE 0.8 mg/dL (0.7-1.3); GFR 128.9; POTASSIUM 4.3 mmol/L (3.5-5.1)
--- NOTE | 2021-07-19 10:34 | PHYS DOC ---
Past History Past Medical History: Alcoholism, Anxiety, Asthma, Bronchitis, COPD Past Surgical History: No Surgical History Smoking: Cigarettes Alcohol Use: Heavy (2 pints every other day) Drug Use: Cocaine, Marijuana General Adult EDM: Chief Complaint: ABDOMINAL PAIN HPI: HPI: Patient is a 41-year-old -[place] male with PMH of bronchitis and chronic alcohol abuse presents with CC abdominal pain. Patient reports dizziness, left sided abdominal pain, and dehydration 07/19/2021 AM. Patient describes dizziness as "lightheaded" and abdominal pain as "crampy". When asked to rate the left-sided abdominal pain patient stated "not a lot". Patient reports symptoms began after walking into a local gas station. Patient reports consuming fifth of gin between the hours of 1000 and 2400 on 07/18/2021. Patient reports has been consuming 2 pints of gin every other day for 7 years. Patient reports he has been accepted at an alcohol detox facility in [facility] starting 07/24/2021. Patient denies past surgical history. Patient denies taking any daily medications. Patient denies smoking history. Patient denies caffeine consumption. Patient reports smoking marijuana every other day however denies other illicit drug usage. Review of Systems: Review of Systems: Constitutional: Denies fever or chills Eyes: Denies redness or eye pain HENT: Denies nasal congestion or sore throat Respiratory: Denies cough or shortness of breath Cardiovascular: Denies chest pain or palpitations GI: Reports mild LUQ/LLQ abdominal pain. Denies nausea or vomiting : Denies dysuria or hematuria Musculoskeletal: Denies back pain or joint pain Integument: Denies rash or skin lesions Neurologic: Denies headache, focal weakness or sensory changes; reports dizziness Complete systems were reviewed and found to be within normal limits, except as documented in this note. Current Medications: Current Meds: Current Medications Medications (Trade) Dose Ordered Sig/Mally Start Time Stop Time Status Last Admin Dose Admin Sodium Chloride 1,000 ml @ 1,000 mls/hr 1X ONCE 07/19/21 10:00 07/19/21 10:59 07/19/21 10:05 1,000 MLS/HR Allergies: Allergies: Allergies Coded Allergies Type Severity Reaction Last Updated Verified No Known Drug Allergies 07/19/21 No Physical Exam: PE: Constitutional: Well developed, well nourished, no acute distress, non-toxic appearance HENT: Normocephalic, atraumatic Eyes: PERRL, EOMI, conjunctiva normal, no discharge, mild scleral icteris Neck: Normal range of motion, no tenderness, supple Lungs & Thorax: No respiratory distress, equal chest rise and fall Abdomen: Soft, mild LUQ/LLQ tenderness to deep palpation, no rebound/guarding Skin: Warm, dry, no erythema, no rash Back: No tenderness, no CVA tenderness Extremities: No tenderness, ROM intact, no edema, 5/5 strength BUE/BLE, <2 capillary refill, negative Guzman Neurologic: Alert and oriented X 3, normal motor function, normal sensory function, no focal deficits noted Psychologic: Affect normal, judgment normal Current Patient Data: Labs: Laboratory Tests Test 07/19/21 09:55 White Blood Count 3.6 x10^3/uL (4.0-11.0) L Red Blood Count 5.11 x10^6/uL (4.30-5.70) Hemoglobin 15.6 g/dL (13.0-17.5) Hematocrit 46.5 % (39.0-53.0) Mean Corpuscular Volume 91 fL (79-100) Mean Corpuscular Hemoglobin 31 pg (25-35) Mean Corpuscular Hemoglobin Concent 34 g/dL (31-37) Red Cell Distribution Width 15.2 % (11.5-14.5) H Platelet Count 250 x10^3/uL (140-400) Neutrophils (%) (Auto) 60 % (31-73) Lymphocytes (%) (Auto) 29 % (24-48) Monocytes (%) (Auto) 8 % (0-9) Eosinophils (%) (Auto) 3 % (0-3) Basophils (%) (Auto) 1 % (0-3) Neutrophils # (Auto) 2.1 x10^3uL (1.8-7.7) Lymphocytes # (Auto) 1.0 x10^3/uL (1.0-4.8) Monocytes # (Auto) 0.3 x10^3/uL (0.0-1.1) Eosinophils # (Auto) 0.1 x10^3/uL (0.0-0.7) Basophils # (Auto) 0.0 x10^3/uL (0.0-0.2) Vital Signs: Vital Signs Date Time Temp Pulse Resp B/P (MAP) Pulse Ox O2 Delivery O2 Flow Rate FiO2 07/19/21 10:14 53 16 145/86 (105) 100 Room Air EKG: EK 07/19/2021 normal sinus rhythm, no ST segment elevation, HR 59 bpm, WI 160 MS, QRS 82 MS, QT/QTC 372/368 MS Heart Score: C/O Chest Pain: N/A Course & Med Decision Making: Course & Med Decision Making Pertinent Labs and Imaging studies reviewed. (See chart for details) Patient is a 41-year-old -[place] male with PMH of bronchitis and chronic alcohol abuse presents with CC abdominal pain. Patient reports dizziness, left sided abdominal pain, and dehydration 07/19/2021 AM. Abdomen nonperitoneal. Labs obtained and posted to chart. IV fluid hydration given. Patient with interval improvement of symptoms. Patient offered influenza and COVID testing which she declined. Patient stable for discharge with outpatient follow-up with PCP. Discussed findings and plan with patient, who acknowledges understanding and agreement. Tin Disclaimer: Tin Disclaimer: This electronic medical record was generated, in whole or in part, using a voice recognition dictation system. Departure Departure: Impression: Primary Impression: Malaise Additional Impressions: Dizziness Abdominal pain Qualified Codes: R10.84 - Generalized abdominal pain Disposition: HOME / SELF CARE / HOMELESS Condition: STABLE Referrals: PCP,NO (PCP) Patient Instructions: Abdominal Pain (Nonspecific), Dehydration, Adult, [id number], Dizziness, [id number] LILIYA CONDE DO July 19, 2021 10:34
[2021-07-19 10:47] LABS: ALBUMIN 4.4 g/dL (3.4-5.0); ALBUMIN/GLOBULIN RATIO 1.3 (1.0-1.7); MAGNESIUM 1.7 mg/dL (1.8-2.4); TOTAL BILIRUBIN 1.1 mg/dL (0.2-1.0); TOTAL PROTEIN 7.8 g/dL (6.4-8.2)
[2021-07-19 11:29] LABS: BARBITURATES NEG (NEG); BENZODIAZEPINES NEG (NEG); CANNABINOIDS NEG (NEG); COCAINE NEG (NEG); METHADONE NEG (NEG); OPIATES NEG (NEG); PHENCYCLIDINE NEG (NEG)
[2021-07-19] MEDS ORDERED: MAGNESIUM CHLORIDE ER 64 MG TABLET.ER PO ONE (11:30)
[2021-07-19 11:33] LABS: AMPHETAMINE/METHAMPHETAMINE NEG (NEG)
[2021-07-19 12:01] LABS: CLARITY,URINE CLEAR; COLOR,URINE YELLOW; GLUCOSE,URINE NEG (NEG)
[2021-07-19 12:02] LABS: BACTERIA,URINE 0 /HPF (0-FEW); NITRITE,URINE NEG (NEG); RBC,URINE OCC /HPF (0-2); SQUAMOUS EPITHELIAL CELL,UR FEW /LPF; UROBILINOGEN,URINE 0.2 mg/dL (0.2 mg/dL); WBC,URINE 0 /HPF (0-4)
[2021-07-19 12:24] VITALS: BP 156/95
--- NOTE | 2021-07-19 20:23 | EKG ---
[address] [address] Test Date: 2021-07-19 Test Time: 10:00:02 Pat Name: NICK SOFIA Department: Room: Gender: M [employer] Administration Specialist: : [id number] Requested By: LILIYA CONDE Order Number: [id number] Reading MD: Doyle Childress MD Measurements Intervals [place] Rate: 59 P: 19 ME: 160 QRS: 54 QRSD: 82 T: 29 QT: 372 QTc: 368 Interpretive Statements SINUS RHYTHM Electronically Signed On 07-23-2021 9:07:15 CDT by Doyle Childress MD
== END 2021-07-19 12:28 | disposition home or self-care (01) ==
LOC: ER 09:36
DX: R42 Dizziness and giddiness (principal); R53.81 Other malaise; R10.84 Generalized abdominal pain; F10.20 Alcohol dependence, uncomplicated; J44.9 Chronic obstructive pulmonary disease, unspecified; F17.210 Nicotine dependence, cigarettes, uncomplicated; Y90.0 Blood alcohol level of less than 20 mg/100 ml
CPT/HCPCS: 36415; 80053; 80307; 81001; 82553; 83690; 83735; 84484; 85025; 93005; 96360; 99284; G0480; J7030